=== PATIENT | male | born 1985 | race Caucasian/White ===

== ENCOUNTER → 2020-09-24 12:06 | Outpatient (CLI) | payer MEDICAID, SELFPAY ==
[2020-09-24 10:47] VITALS: BMI 27.3
[2020-09-24 15:21] LABS: Absolute Lymphocyte Count 2.42 X10^3/uL (0.83-4.51); Absolute Neutrophil Count 6.2 X10^3/uL (2.0-7.7); Basophil# 0.07 X10^3/uL; Basophil% 0.7 % (0-1); Eosinophil# 0.22 X10^3/uL; Eosinophils% 2.3 % (0-5); Hematocrit 51.5 % (40-54); Hemoglobin 16.5 g/dL (13.0-16.5); Lymphocyte # 2.42 X10^3/ul (4.0); Lymphocyte % 25.1 % (19-41); Mean Corpuscular Hgb 29.3 pg (27.0-32.0); Mean Corpuscular Volume 91.5 fL (80-94); Mean Platelet Vol. 9.7 fl (6.2-12.0); Monocyte# 0.74 X10^3/uL; Monocyte% 7.7 % (0-10); NRBC Flagged by Analyzer 0 % (0-5); Neutrophil # 6.16 X10^3/uL (2.7-7.7); Neutrophil % 63.9 % (47-70); Platelet Count 357 K/mm3 (150-450); RBC Distribution Width CV 11.9 % (11.6-14.6); RBC Distribution Width SD 40.9 fl (35.1-43.9); Red Blood Count 5.63 M/mm3 (4.6-6.2); White Blood Count 9.6 K/mm3 (4.4-11.0)
[2020-09-24 15:45] LABS: Vitamin D,25 Hydroxy 18.5 ng/mL
[2020-09-24 15:55] LABS: ALB/GLOB Ratio 1.3 RATIO (0.9-2.4); AST(SGOT) 17 U/L (15-37); Alanine Aminotransfer ALT/SGPT 28 U/L (16-61); Albumin, Serum 4.5 g/dL (3.2-5.0); Alkaline Phosphatase 80 U/L (45-117); Anion Gap 5 (5-15); BUN 18 mg/dL (7-18); BUN/Creat Ratio 16.1 RATIO (10-20); Calcium,Total 9.1 mg/dL (8.5-10.1); Chloride 106 mmol/L (98-107); Cholesterol 152 mg/dL (200); Creatinine, Serum 1.12 mg/dL (0.70-1.30); EST Glomerular Filtration Rate 79 mL/min (>60); Est Glom Filt Rate - Afr Amer 96 mL/min (>60); Free T3 2.7 pg/mL (2.18-3.98); Globulin 3.4 g/dL (2.2-4.2); Glucose 82 mg/dL (74-106); High Density Lipoprotein 47 mg/dL; Potassium 4.5 mmol/L (3.5-5.1); Protein, Total 7.9 g/dL (6.4-8.2); Sodium Level 143 mmol/L (136-145); T4 Free Direct 0.58 ng/dL (0.76-1.46); Triglycerides 174 mg/dL; Very Low Density Lipoprotein 35 mg/dL (5-40)
[2020-09-24 16:10] LABS: Hemoglobin A1c 5.2 % (3.8-5.6)
[2020-09-26 09:50] LABS: Hepatitis B Core Ab Total Negative (Negative)
== END ==
PROVIDERS: PCP Internal Medicine; Referring Provider Internal Medicine; Visit Provider Internal Medicine
DX: E55.9 Vitamin D deficiency, unspecified (principal); E78.5 Hyperlipidemia, unspecified; E03.9 Hypothyroidism, unspecified; F41.9 Anxiety disorder, unspecified; R45.86 Emotional lability
CPT/HCPCS: 36415; 80053; 80061; 82306; 83036; 84439; 84443; 84481; 85025; 86704

== ENCOUNTER 2020-10-02 10:23 | Emergency (ER) | payer OTHER, MEDICAID, SELFPAY ==
[2020-09-24 10:47] VITALS: BMI 27.3
[2020-10-02 10:25] VITALS: BP 132/93; PULSE 80; RESP 17; TEMP 36.1; O2SAT 97; BMI 27.3
--- NOTE | 2020-10-02 10:57 | ED.DCSUM_ITS ---
- ER Visit Summary Date of Service: 10/02/20 Chief Complaint: Right leg pain History of Present Illness: The patient is a [address] Crawley. He reports that he was at work and got his right leg is stuck in between a loading dock in a truck. He has an aching pain is 7 of 10 at worst and 5-10 currently. It is worsened with plantar and dorsiflexion of his foot as well as walking. It is relieved by rest and ice. He denies any paresthesias distally. He denies any other injuries. No blow to the head or loss of consciousness. Is not on anticoagulants. No neck, back, shoulder, wrist, or hip pain. On review of systems patient reports that he had a sore throat and cough for the past 3 days. His cough is nonproductive. He denies any fever, chills, shortness of breath. He denies Covid exposure. He does wear a mask. Physical Examination: Vitals: Stable. Afebrile. General: Well-nourished and well-developed. Head: Normocephalic atraumatic. Neck: Supple, no lymphadenopathy. No JVD. Nontender. Cardiovascular: Regular rate and rhythm. No murmurs. Respiratory: No respiratory distress. Clear to auscultation bilaterally. Abdominal: Soft, nontender, nondistended, normal bowel sounds. No guarding, rebound, or peritoneal signs. Back: Nontender. Extremities: Moderate tenderness palpation anteriorly over the distal tibia and fibula. There is no pain over the medial or lateral malleoli. No pain over the base the fifth metatarsal or proximal fibula. He is neurovascular intact distally. 2+ dorsalis pedis pulse, no edema. Skin: Normal color, no rash. Neurologic: Alert and oriented ?3. Cranial nerves II through XII are intact. Normal strength and sensation. Psych: Normal affect. Test Results: COVID-19 is negative. Clinical Impression(s) from Imaging Studies Tibia/Fibula X-Ray 10/02/20 11:25 IMPRESSION: Normal x-ray examination of the right tibia and fibula. Electronically Signed: Pablo Ely MD at 11:54 EDT Tel , Service support , Emergency Department Course and Treatment: Patient was given ibuprofen. He is resting comfortably. Treatment Plan: Patient is unable to ambulate without crutches. He will be discharged with crutches. Instructed to ice the area. Use Tylenol and/or ibuprofen for pain. Follow-up Workmen's Comp. within 1 week for another exam. Return to the emergency department for any worsening symptoms. Disposition: To home in improved and stable condition. Impression: 1. Right leg contusion. 2. URI. This note was generated with [email or web address] dictation software. It may contain incorrect words, spelling, and punctuation that were not noted in review of the chart prior to signing ED Disposition - Plan for ED Patient: Instructions: ED Contusion, Lower Extremity [facility]: [facility] [GROUP OF PHYSICIANS] - 1 Week
[2020-10-02] MEDS: Ibuprofen 400 MG Tablet 800 MG PO (11:10)
--- NOTE | 2020-10-02 11:25 | RAD_ITS ---
STUDY: X-RAY - RIGHT TIBIA AND FIBULA REASON FOR EXAM: Right lower leg pain after lower leg injury. TECHNIQUE: 2 view(s) of the tibia and fibula were obtained. COMPARISON: None. FINDINGS: Normal visualized tibia. Normal visualized fibula. The soft tissue structures are unremarkable. RAD/Tibia & Fibula 2 Views IMPRESSION: Normal x-ray examination of the right tibia and fibula. Electronically Signed: Pablo Ely MD at 11:54 EDT Tel , Service support ,
[2020-10-02 12:32] VITALS: BP 132/85; RESP 16
== END 2020-10-02 12:43 | disposition home or self-care (01) ==
PROVIDERS: Emergency Provider Emergency Medicine; PCP Internal Medicine
DX: S80.11XA Contusion of right lower leg, initial encounter (principal); J06.9 Acute upper respiratory infection, unspecified; F17.200 Nicotine dependence, unspecified, uncomplicated
CPT/HCPCS: 73590; 87426; 99284

== ENCOUNTER → 2021-02-13 13:56 | Outpatient (CLI) | payer MEDICAID, SELFPAY ==
[2021-02-13 13:08] VITALS: BMI 27.3
[2021-02-13 15:49] LABS: Free T3 2.5 pg/mL (2.18-3.98); Thyroid Stim Hormone (TSH) 4.41 uIU/mL (0.358-3.74)
[2021-02-13 15:58] LABS: HIV - WCH Non-Reactive (Nonreactive)
[2021-02-16 07:06] LABS: Chlamydia By Nucleic Acid AMP Negative (Negative)
[2021-02-17 12:10] LABS: Gonococcus By Nucleic Acid AMP Negative (Negative)
== END ==
PROVIDERS: PCP Internal Medicine; Referring Provider Internal Medicine; Visit Provider Internal Medicine
DX: E03.9 Hypothyroidism, unspecified (principal); Z20.2 Contact with and (suspected) exposure to infections with a predominantly sexual mode of transmission
CPT/HCPCS: 36415; 84439; 84443; 84481; 86703; 87491; 87591

== ENCOUNTER → 2021-04-03 12:25 | Outpatient (CLI) | payer MEDICAID, SELFPAY ==
[2021-04-03 15:45] LABS: Free T3 3.3 pg/mL (2.18-3.98); T4 Free Direct 0.88 ng/dL (0.76-1.46); Thyroid Stim Hormone (TSH) 0.11 uIU/mL (0.358-3.74)
== END ==
PROVIDERS: PCP Internal Medicine; Referring Provider Internal Medicine; Visit Provider Internal Medicine
DX: E03.9 Hypothyroidism, unspecified (principal)
CPT/HCPCS: 36415; 84439; 84443; 84481

== ENCOUNTER → 2021-05-22 13:48 | Outpatient (CLI) | payer MEDICAID, SELFPAY ==
[2021-05-22 16:07] LABS: Free T3 2.3 pg/mL (2.18-3.98); T4 Free Direct 0.59 ng/dL (0.76-1.46); Thyroid Stim Hormone (TSH) 3.85 uIU/mL (0.358-3.74)
== END ==
PROVIDERS: PCP Internal Medicine; Visit Provider Internal Medicine
DX: E03.9 Hypothyroidism, unspecified (principal)
CPT/HCPCS: 36415; 84439; 84443; 84481

== ENCOUNTER 2021-08-19 11:47 | Outpatient (CLI) | payer MEDICAID, SELFPAY ==
[2021-08-19 15:43] LABS: Free T3 2.6 pg/mL (2.18-3.98)
== END 2021-08-19 23:59 | disposition short-term general hospital (02) ==
LOC: BIMLAB 11:48
PROVIDERS: PCP Internal Medicine; Referring Provider Internal Medicine; Visit Provider Internal Medicine
DX: E03.9 Hypothyroidism, unspecified (principal)
CPT/HCPCS: 36415; 84439; 84443; 84481

== ENCOUNTER → 2023-02-03 | Outpatient (CLI) | payer MEDICAID, SELFPAY ==
[2023-02-03 15:40] LABS: Absolute Lymphocyte Count 1.81 X10^3/uL (0.83-4.51); Absolute Neutrophil Count 3.6 X10^3/uL (2.0-7.7); Basophil# 0.08 X10^3/uL; Basophil% 1.3 % (0-1); Eosinophil# 0.14 X10^3/uL; Eosinophils% 2.2 % (0-5); Hematocrit 46.5 % (40-54); Hemoglobin 15.1 g/dL (13.0-16.5); Lymphocyte # 1.81 X10^3/ul (0.83-4.51); Lymphocyte % 28.3 % (19-41); Mean Corp Hgb Conc 32.5 g/dL (32-36); Mean Corpuscular Hgb 28.7 pg (27.0-32.0); Mean Corpuscular Volume 88.2 fL (80-94); Monocyte# 0.71 X10^3/uL; Monocyte% 11.1 % (0-10); NRBC Flagged by Analyzer 0 % (0-5); Neutrophil # 3.64 X10^3/uL (2.7-7.7); Neutrophil % 56.9 % (47-70); Platelet Count 316 K/mm3 (150-450); RBC Distribution Width CV 12.4 % (11.6-14.6); RBC Distribution Width SD 39.9 fl (35.1-43.9); Red Blood Count 5.27 M/mm3 (4.6-6.2); White Blood Count 6.4 K/mm3 (4.4-11.0)
[2023-02-03 16:45] LABS: ALB/GLOB Ratio 1.4 RATIO (0.9-2.4); AST(SGOT) 25 U/L (15-37); Alanine Aminotransfer ALT/SGPT 38 U/L (16-61); Albumin, Serum 4.3 g/dL (3.2-5.0); Alkaline Phosphatase 83 U/L (45-117); Anion Gap 7 (5-15); BUN 14 mg/dL (7-18); BUN/Creat Ratio 13.2 RATIO (10-20); Calcium,Total 8.7 mg/dL (8.5-10.1); Chloride 107 mmol/L (98-107); Cholesterol 196 mg/dL (200); Creatinine, Serum 1.06 mg/dL (0.70-1.30); EST Glomerular Filtration Rate 83 mL/min (>60); Est Glom Filt Rate - Afr Amer 101 mL/min (>60); Free T3 2.5 pg/mL (2.18-3.98); Globulin 3.1 g/dL (2.2-4.2); Glucose 92 mg/dL (74-106); High Density Lipoprotein 35 mg/dL; Potassium 4.3 mmol/L (3.5-5.1); Protein, Total 7.4 g/dL (6.4-8.2); Sodium Level 139 mmol/L (136-145); T4 Free Direct 0.73 ng/dL (0.76-1.46); Triglycerides 479 mg/dL
[2023-02-03 17:50] LABS: Vitamin D,25 Hydroxy 30.2 ng/mL
== END | disposition home or self-care (01) ==
LOC: LAB 15:07
PROVIDERS: PCP Internal Medicine; Referring Provider Internal Medicine; Visit Provider Internal Medicine
DX: E03.9 Hypothyroidism, unspecified (principal); E78.5 Hyperlipidemia, unspecified; F41.9 Anxiety disorder, unspecified; F32.9 Major depressive disorder, single episode, unspecified; E55.9 Vitamin D deficiency, unspecified
CPT/HCPCS: 36415; 80053; 80061; 82306; 84439; 84443; 84481; 85025

== ENCOUNTER 2023-04-20 09:38 | Outpatient (RCR) | payer MEDICAID, SELFPAY ==
--- NOTE | 2023-04-20 09:05 | BH.SGPN.GN ---
Behaviors/Verbalizations/Mental Status: [] Eye contact is good. Motor activity is appropriate. Appearance is casual. Speech is Appropriate. Mood is anxious. Affect is congruent. Thoughts are linear and logical. No evidence of psychosis. Reviewed daily check in sheet and no reports of suicidal ideations or intent. Client Response/Progress/Benefit: [] Pt participated when prompted. Daily symptom tracker notes 3/5 for anxiety and 2/5 for depression. Shared with the group that today is his first day in IOP. Briefly introduced himself and reports that his goal for IOP is to decrease the intensity and impact of depression and anxiety on his life. Very brief introduction. Group welcomed him and provided feedback on getting through his first day and week in IOP which was beneficial. Limtied progress as this was pt's first day in IOP. Will continue in IOP to prevent decompensation, stablize anxiety, and increase healthy coping skills. Narrative Note: []
--- NOTE | 2023-04-20 10:15 | BH.SGPN.GN ---
Behaviors/Verbalizations/Mental Status: [] Eye contact is fair. Motor activity is appropriate. Appearance is casual. Speech is Appropriate. Mood is anxious. Affect is flat. Thoughts are linear and logical. No evidence of psychosis or hallucinations. Client Response/Progress/Benefit: [] Pt was a mostly passive participant in group discussion and activity. Attentive during psychoeducation. Along with peers was able to identify barriers to taking action on her mental health which included: fear of failure, the unknown, change, one's environment, past negative experiences, being passive, and fear of vulnerability. Identified several symptoms and stressors that client feels are impacting progress. Benefited from increased self-awareness of obstacles. Will continue in IOP to challenge distortions, increase healthy coping, and prevent decompensation.
--- NOTE | 2023-04-20 10:48 | BH.MTP ---
Master Treatment Plan Patient Information Program Physician:: Dr. Nakia Gomes Primary Therapist:: KENTRELL Avila Psychiatric Diagnoses Psychiatric Diagnoses:: 1. Major depressive disorder, recurrent, severe without psychosis 2. Social anxiety disorder 3. Generalized anxiety disorder 4. Opioid and methamphetamine use disorders (sober for anywhere from 1 to 3 months) Diagnosis Code(s):: F33.2 Estimated LOS Estimated LOS (in weeks):: 6 Problem/Goal #1 Problem/Goal #1 Stated Goal:: Pt will increase mood stability by reducing hopelessness, worthlessness, and negative thinking patterns caused by MDD. Description of Barriers: Pt reports avoidance, negative thinking patterns, and lack of energy. Pt has an extensive substance abuse and legal hx as well which may impede consistent progress as well. Functional Impact: The patient is a 37-year-old male with a history of depression, anxiety and opioid use disorder (sober from 2 to 3 months) who was referred by a counselor at [facility] for depression and anxiety. The patient states that he used to use the drugs to self-medicate for anxiety. Since being sober, in the recent months his depression has worsened and it is hard for him to leave the house or get out of bed due to lack of motivation. He is not afraid to leave the house although he does have social anxiety. His biggest stress is life, specifically not having a job or independent housing. For primary support he has his family however reports he is not close with them. 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 He denies any history of self-harm. He endorses sadness, hopelessness, rumination, social anxiety, worthlessness, lack of motivation, anhedonia, low energy, decreased concentration which has improved in recent weeks and guilt. He also had fleeting suicidal ideation several weeks ago at the time of his intake, but he now denies any suicidal ideation, plan for suicide, homicidal ideation, hallucinations, delusions or mandi ever. He denies OCD, eating disorder, trauma, PTSD or seizure. He did have an accidental overdose on opiates in the past but denied any PTSD symptoms from this. Goal Relevant Strengths/Supports: Pt is motivated, connected with outpatient psychiatry, and has completed substance abuse tx Objectives Objective #1: Stated Objective: Pt will learn and utilize 2-3 healthy coping strategies to better manage depressive symptoms and reduce suicidal ideations as shown by a decrease of DMS-5 symptoms for depression. Interventions: Through group and individual sessions, therapist will help pt identify triggers and warning signs of depression including emotional, physical, and behavioral changes. Therapist will teach pt various coping skills to manage symptoms and give pt tangible resources to use to regulate emotions. Therapist will use cognitive restructuring techniques and help pt gain awareness of negative thoughts that reinforce guilt and depression. Therapist will provide psychoeducation on maintenance cycles and help pt learn ways to break unhealthy maintenance cycles. Therapist will help pt incorporate behavioral activation and assist pt in setting SMART goals. Discharge Criteria: Pt will have met this goal when can report learning and using at least 2 coping skills to manage depressive symptoms and reduce isolation. Additionally, pt will have met this goal when pt's DSM-5 scores for depression decrease Target Date: 06/01/23 Review Date: 05/11/23 Objective #2: Stated Objective: Pt will identify at least 2-3 negative self-talk messages used to reinforce negative core beliefs, worthlessness, and isolation and replace thoughts with balanced, realistic messages. Interventions: Therapist will help pt identify distorted, negative beliefs about self and replace with more realistic, affirmative messages. Therapist will use CBT and DBT to help pt increase insight to the connection between thoughts, emotions, and behaviors. Therapist will encourage pt to practice thought challenging. Discharge Criteria: Pt will have achieved this goal when can verbalize at least 2 cognitive distortions and effectively replace those thoughts with affirmative messages. Target Date: 06/01/23 Review Date: 05/11/23 Problem/Goal #2 Problem/Goal #2 Stated Goal:: Will reduce intensity of anxiety and panic through increasing and distress tolerance skills Description of Barriers: Pt reports avoidance, negative thinking patterns, and lack of energy. Pt has an extensive substance abuse and legal hx as well which may impede consistent progress as well. Functional Impact: The patient is a 37-year-old male with a history of depression, anxiety and opioid use disorder (sober from 2 to 3 months) who was referred by a counselor at [facility] for depression and anxiety. The patient states that he used to use the drugs to self-medicate for anxiety. Since being sober, in the recent months his depression has worsened and it is hard for him to leave the house or get out of bed due to lack of motivation. He is not afraid to leave the house although he does have social anxiety. His biggest stress is life, specifically not having a job or independent housing. For primary support he has his family however reports he is not close with them. 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 He denies any history of self-harm. He endorses sadness, hopelessness, rumination, social anxiety, worthlessness, lack of motivation, anhedonia, low energy, decreased concentration which has improved in recent weeks and guilt. He also had fleeting suicidal ideation several weeks ago at the time of his intake, but he now denies any suicidal ideation, plan for suicide, homicidal ideation, hallucinations, delusions or mandi ever. He denies OCD, eating disorder, trauma, PTSD or seizure. He did have an accidental overdose on opiates in the past but denied any PTSD symptoms from this. Goal Relevant Strengths/Supports: Pt is motivated, connected with outpatient psychiatry, and has completed substance abuse tx Objectives Objective #1: Stated Objective: Pt will identify 2-3 anxiety triggers and 2 coping skills to use when feeling anxious to manage anxiety as shown by reducing DSM-5 scores for anxiety Interventions: Therapist will provide education on anxiety, avoidance behaviors, and maintenance cycles. Therapist will help pt explore personal symptoms and warning signs of anxiety. Therapist will teach pt coping skills to improve emotional regulation, mindfulness, and distress tolerance to help pt cope with anxiety in the moment. Discharge Criteria: Pt will have accomplished this goal when she can identify at least 2 triggers and report using 2 coping skills to manage anxiety. Additionally, pt will have accomplished this goal AEB reduction of DSM-5 scores for anxiety. Target Date: 06/01/23 Review Date: 05/11/23
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
--- NOTE | 2023-04-20 10:49 | BH.PSA ---
Development & Family of Origin Family History Family History Father Kidney disease Cancer Grandmother Kidney disease Mother Cancer
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
--- NOTE | 2023-04-20 11:20 | BH.SGPN.GN ---
Behaviors/Verbalizations/Mental Status: []Pt alert and oriented, casually dressed and groomed. Eye contact good. Motor activity appropriate. Speech within normal limits. Affect congruent, mood anxious. Thoughts linear, logical, no signs of hallucinations or delusions. Client Response/Progress/Benefit: [] Pt responded well to session, taking notes and participating in worksheet discussion. Pt connected with the zones of action/change and that making sustainable change comes from stepping out of one?s comfort zone into the learning zone. Pt set a goal to gain control over their negative self-talk. Pt will do this by focusing on having at least two social interactions a week. ?Pt will reach out to a friend and schedule ahead of time to keep pt accountable. Appeared to benefit from identifying a small goal to benefit mental health. Will continue IOP tx to prevent decompensation, improve daily functioning, and gain healthy coping skills. ?? Narrative Note: []
--- NOTE | 2023-04-21 09:35 | BH.NA ---
Physical Data Vital Signs Pulse Rate: 64 Blood Pressure: 148/98 Height/Weight Height: 1.73 m Weight:: 97.976 kg Weight in Pounds: 216.0 lbs Current Medication Compliance Medication Compliance Do you take your medication as prescribed?: Yes (Client had stopped Remeron/Seroquel for a period of time d/t wt gain) Nutritional History Appetite Nutritional Instructions: Describe your appetite:: Good Additional nutritional information:: Client states he had stopped his Remeron and Seroquel a few months ago for a period of time due to weight gain from medications. Client is back on both medications and states he has noticed some weight gain but is trying to eat healthy and exercise. Functional Assessment Sleep Pattern Describe any problems with sleeping: Client states he sleeps about 8 hours per night. Sensory/Communication Assess Communication Problems Do you have difficulty understanding what people are saying?: No Medical Problems/History Cardiac Conditions Cardiovascular: Hyperlipidemia (used to be on medication, is no longer) Metabolic Conditions Metabolic: Hypothyroidism Pain Assessment Do you have acute or chronic pain?: No Family History Family History Father Kidney disease Cancer Grandmother Kidney disease Mother Cancer Surgical History Surgical History Have you had any surgeries? If so, list type and date:: Yes (wisdom tooth extraction) Substance Abuse Substance Abuse Please describe substance abuse in the last 30 days:: Client reports he does not drink any alcohol, but he used to drink socially. Client states he currently vapes nicotine. Client states he last had a relapse of opioid and methamphetamine use about 3 months ago. Client states he first used opioids recreationally in his early 20's and used them and methamphetamine's consistently off and on for many years. Client states he has tried other drugs in the past. Client states he drinks 1-2 cups of coffee per day and rarely has energy drinks. Mental Status Summary Mental Status Significant Findings/Observations on Appearance and Mood:: Client is alert and oriented x 4. Client is casually groomed with good hygiene. Client is cooperative with assessment. Client makes good eye contact. Client's voiced has normal rate and volume. Client has appropriate affect and makes logical associations. Client has normal processing. Client denies delusions/hallucinations. Client denies SI. Suicide Assessment Suicidal Ideation Are you currently or have you been suicidal in the past?: Yes Suicidal Intentional Rating Scale (SIRS): Suicidal thoughts (past) Physician Notification Past Psychiatric History MH Treatment Hx Past Psychiatric Medications:: Client states he has only been on his current medications (Buspar, Lexapro, Remeron, Seroquel) Age of first mental health symptoms: Client states he feels he has had anxiety since childhood, but didn't take medications for mental health until about 2-3 years ago. Describe (age, circumstance, etc) any past hospitalizations: None. Current providers for mental health treatment (counselor, psychiatrist, child support case officer, etc.): counselor at [facility], psychiatry at [facility] Fall Risk Assessment Age Age: Less than 60 Mental Status Mental Status: Willing & able to ask for assistance when needed Physical Status Physical Status: No problems Impairments Impairments: None Elimination Elimination: Continent AND independent Gait or Balance Gait or Balance: Walks independently Hx of Falls History of falls in the past 6 months: No known history Medications/Substances Psychotropics:: Antidepressants and Mood stabilizers Medications/substances used within the past 24 hours or ordered to administer: 1-2 of the medications/substances listed above Total Score Total Points:: 1 RN Summary of Impressions Impressions Recommendations Impressions: Psychiatric Issues: 1. Major depressive disorder, recurrent, severe without psychosis 2. Social anxiety disorder 3. Generalized anxiety disorder 4. Opioid and methamphetamine use disorders (sober for anywhere from 1 to 3 months) 5. Hypothyroidism 6. Primary support and work issues Level of Care How do the client's current symptoms and functional deficits support need for this level of care?: Client was referred to IOP by his outpatient counselor after a relapse of opioid/meth use about 3 months ago with increased anxiety and depression after. Client states he thinks anxiety/depression has factored in to why he has used drugs in the past. Client has been to rehab for drug use multiple times. Client states he had had 1 year sober, but relapsed in June 2022 and lost his job after that and went to rehab in July 2022. Client states his anxiety and depression has been exacerbated since then. Client reports isolating himself, avoidance, ruminations, and racing thoughts. Client denies SI. IOP will promote gains and prevent further decompensation while providing social support and skills training.
[2023-04-21 10:02] VITALS: BP 148/98; PULSE 64
--- NOTE | 2023-04-21 10:10 | BH.SGPN.GN ---
Behaviors/Verbalizations/Mental Status: [Patient was alert and oriented, casually dressed and groomed. Eye contact good, motor activity normal, speech within normal limits. Affect congruent, mood content. Thoughts linear, logical, no signs of hallucinations or delusions. ] Client Response/Progress/Benefit: [Patient was open and participated in group discussions. Attentive during psychoeducation on stages of change. Participated during the activity. Interactive group discussion on why change is difficult in which group verbalized that change involves the unknown, is scary, leads to uncertainly, makes one feel vulnerable, leads to fear of failure, and triggers the pressure of success. Patient identified with fear as being a barrier for him. Patient benefited from increased awareness of stages of changes and how emotions impact change. Patient will continue with IOP treatment to promote mood stability, improve distress tolerance, and continue to improve functioning.] Narrative Note: []
--- NOTE | 2023-04-21 11:10 | BH.SGPN.GN ---
Behaviors/Verbalizations/Mental Status: []Pt alert and oriented, casually dressed and groomed. Eye contact good. Motor activity appropriate. Speech within normal limits. Affect congruent, mood anxious and depressed. Thoughts linear, logical, no signs of hallucinations or delusions. Client Response/Progress/Benefit: []Pt responded well to session, attentive. Did well to engage in and process activity. Pt worked with group to relate the strategies used to overcome barriers in the activity to managing change in own life. Pt identified wanting to work on reducing isolation by reaching out to friends and family daily. Pt Pt identified that setting a specific time each day to call or teach one of his supports would aid in his ability to follow-through with making this change. Pt will continue IOP tx to further improve anxiety management skills, promote continued communication with supports, and improve self-care. Narrative Note: []
--- NOTE | 2023-04-21 12:48 | PCM.BH.PSYEV ---
Psychiatric Evaluation Initial Evaluation Initial Evaluation: History of Present Illness: [] The patient is a 37-year-old single male with a history of depression, anxiety and opioid use disorder (sober from 2 to 3 months) who was referred by a counselor at [facility] for depression and anxiety. The patient states that he used to use the drugs to self medicate for anxiety. Since being sober and in the recent months his depression has worsened and it is hard for him to leave the house or get out of bed due to lack of motivation. He is not afraid to leave the house although he does have social anxiety if he has to go to a social function. His biggest stress is life. He states that he has no job and no house and is 37 years old. For primary support he has his family. 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 He denies any history of self-harm. He endorses sadness, hopelessness, worthlessness, lack of motivation, anhedonia, low energy, decreased concentration which has improved in recent weeks and guilt. He also had fleeting suicidal ideation several weeks ago at the time of his intake but he now denies any passive thoughts of and denies suicidal ideation, plan for suicide, homicidal ideation, hallucinations, delusions or mandi ever. He is a worrier by nature and ruminates negatively. He avoids social situations. He has had panic attacks in the past but none in the past month. He denies OCD, eating disorder, trauma, PTSD or seizure. He did have an accidental overdose on opiates in the past but denied any PTSD symptoms from this. Current Psychiatric Medications: [] He restarted his psych meds a few months ago after discontinuing the Seroquel due to weight gain. Seroquel Exar 25 or 50 mg p.o. nightly (for few years;); Remeron 15 mg p.o. nightly (x1 year); BuSpar 15 mg p.o. 3 times daily; Lexapro 20 mg daily (for about a year); propranolol 10 mg p.o. twice daily. Past Psychiatric History: [] No suicide attempts ever. No psych admits ever. He has providers at [facility] for the past few years and his psychiatrist at the [facility]. He first took meds in the last few years. He has had anxiety since childhood but used illicit drugs to cope instead of prescribed medicines. He thinks the only psych meds he has been on are the ones listed above. Substance Use History: [] Patient states I have done every drug you could think of. He has been in and out of rehab several times and admits to using opiates in the form of oxycodone and other p.o. opiates and also he has smoked heroin and fentanyl and he has used opiates daily for years. He did take buprenorphine in the past to help stay sober but is unsure why he stopped it. He also has a history of methamphetamine abuse and at one point he did methamphetamine and opiates together for for several months. His most recent episode of rehab was in 2022. He first used alcohol and marijuana in college. In his mid 20s he began using opiates and other drugs and he has not used any drugs since 3 months ago but he was inconsistent on his time since last use. The intake other records and my interview had anywhere from 1 to 3 months to 4 months listed as the last time he used drugs. He does vape nicotine but does not use any more marijuana or alcohol lately. Allergies: [] No known allergies Medications: [] Levothyroxine and psych meds as dictated above. Past Medical History: [] Hypothyroidism. Denies any surgeries except wisdom teeth. No other medical illnesses. Family Psychiatric History: [] Mom and dad are both in their 60s. He had a paternal uncle who committed suicide but he denies any mental illness in any other family members except himself. He states that there are no one else in the family has any substance issues that he knows of. Personal/Social History: [] He was born and raised in [place] [facility] [place] [facility] and moved to [place] with his father at age 16 and lived in [place] for 15 years. 3 years ago he went boot moved back to [place] to get away from drugs and attempt to stay sober. His parents were but when the patient was 16 years old and the kids stayed with his father. He has 1 brother 3 years younger and 1 sister 9 years younger and they are not very close because he says he has himself due to his drug use. His parents were loving and he denies any verbal, physical or sexual abuse ever. He did well in school and graduated high school and obtained a BS in [employer]. 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 He has lost jobs due to relapses on opiates and lost his most recent job after 1 year due to a relapse. He has had 3 serious girlfriends in the past but none in recent years. There is no abuse or abuse in his past relationships. Legal History: [] He has been arrested twice for possession of drugs and has spent time in residential for this. 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 Review of Systems: [] Review of systems is negative except as noted in the present illness. Vital Signs: [] Vital signs are reviewed in the records and in the nurses notes and updated and the patient is deemed medically able to participate in the IOP. Mental Status Examination: [] The patient is a 37-year-old male who appears normal for stated age and is dressed in a baseball cap and has glasses. He is ambulatory with a normal gait and has no psychomotor agitation or retardation. He is cooperative during the interview. Eye contact is fair and sometimes good and speech is normal rate and rhythm and fluent with no pressure. Mood is anxious and depressed. Affect is constricted. Thought process is goal-directed and organized. Thought content: The patient lacks motivation and has anxiety in social situations. He admits to fleeting suicidal ideation several weeks ago. He denies passive thoughts of , current suicidal ideation, plan for suicide, homicidal ideation, hallucinations, delusions or symptoms of mandi. Reality testing is intact. Intelligence is above average. Judgment is intact. Insight is limited but some present. Impulsivity is high. Diagnoses: [] 1. Major depressive disorder, recurrent, severe without psychosis 2. Social anxiety disorder 3. Generalized anxiety disorder 4. Opioid and methamphetamine use disorders (sober for anywhere from 1 to 3 months) 5. Hypothyroidism 6. Primary support and work issues Plan: [] The patient will start the IOP at [facility] in behavioral health as the structure, support, education and group therapy will hopefully prevent worsening of the patient's symptoms which could lead to hospitalization. He felt safe during the interview and if it anytime he does not feel safe he will let us know or go to the emergency room. The risk, options, possible complications and side effects of the medications were discussed with the patient and he understands and accepts these. He agrees to try stopping his Seroquel XR or reducing to 25 if the dose is 50 to help prevent the weight gain. If his anxiety worsens after this he may restart the Seroquel. The patient agrees to exercise by walking daily and to try to eat healthy in order to avoid weight gain. He agrees to stay sober from all drugs. He agrees to stay keep attending his AA meetings. He will continue to follow-up with his outpatient providers and I will see the patient in follow-up in 2 weeks.
--- NOTE | 2023-04-21 13:01 | BH.DR.ITP ---
Initial Treatment Plan Patient Information Visit Information: ADMISSION DATE: EXPECTED LOS: 4-6 weeks Problems/Symptoms Problem #1:: Depression Symptom:: Sadness, hopelessness, anhedonia, low energy, guilt, fleeting, passive suicidal ideation, decreased concentration Problem #2:: Anxiety Symptom:: Worry, rumination, avoidance
--- NOTE | 2023-04-22 09:00 | BH.SGPN.GN ---
Behaviors/Verbalizations/Mental Status: [Patient was alert and oriented, casually dressed and groomed. Eye contact was good, motor activity normal, speech within normal limits. Affect congruent, mood content. Thoughts linear, logical, no signs of hallucinations or delusions. Reviewed Patients symptom tracker, the patient reports moderate in anxiety/panic attacks. The patient reported he is low/moderate in depressed mood. Patient reports none for agitation/irritability/anger, self-harm urges, and thoughts/risk of suicide. ] Client Response/Progress/Benefit: [Patient was engaged and open to the discussion. Patient reported his mood to be ?tired?. The patients first win is that he was able to get up and come to group. The patient shared this was significant because he is not used to waking up and getting ready so early. The patient was not able to identify a second win so the group helped him brainstorm ways he can manage waking up and getting himself out of bed. The stressor is he is afraid he won?t wake up on time and be late to group. Patient was interactive and respectful with other group members about their mental wins and stressors. Patient benefited from the discussion by listening to feedback and giving input on her peer?s stressors and mental health wins. Patient will continue with IOP treatment to help develop healthy skills, promote mood stability, and improve distress tolerance. ] Narrative Note: []
--- NOTE | 2023-04-22 10:10 | BH.SGPN.GN ---
Behaviors/Verbalizations/Mental Status: [] Eye contact is good. Motor activity is appropriate. Appearance is casual. Speech is Appropriate. Mood is anxious dysthymic. Affect is constricted. Thoughts are linear and logical. No evidence of psychosis. Client Response/Progress/Benefit: [] Client was an attentive during interactive group discussions by writing notes and sharing when prompted. Attentive during psychoeducation on the six types of boundaries (physical, emotional, intellectual, sexual, time, and material) AEB note-taking. Along with peers contributed to interactive discussion on defining what a boundary is in mental health. Client along with peers identified challenges to setting boundaries which included; fear of other's response, guilt, fear of losing relationships, and not knowing how to. Client along with peers identified the benefits to setting boundaries. Client shared he struggles with setting boundaries because he doesn't want to deal with the confrontation. Client benefited from increased awareness and insight on the importance/benefit to setting healthy boundaries. Will continue in IOP to improve daily functioning, increase healthy coping, and prevent decompensation. Narrative Note: []
--- NOTE | 2023-04-22 11:10 | BH.SGPN.GN ---
Behaviors/Verbalizations/Mental Status: []Pt alert and oriented, casually dressed and groomed. Eye contact fair. Motor activity appropriate. Speech within normal limits. Affect congruent, mood anxious. Thoughts linear, logical, no signs of hallucinations or delusions. Client Response/Progress/Benefit: []Pt responded well to session, engaged and contributing. Pt attentive during psychoeducation on the different boundary styles. Able to connect impact current boundary styles impact on functioning. Pt was given a handout on strategies for healthy boundary setting. Appeared to benefit from increasing insight to boundary setting and the impacts on mental health. Pt states his boundaries are too rigid. Pt reported he wants to work on stepping outside his comfort zone by agreeing to do something with someone instead of staying at home alone. Will continue IOP tx to increase healthy coping, challenge distorted thoughts, and prevent decompensation.
--- NOTE | 2023-04-27 10:39 | BH.COMM ---
Communication Note Communication with Client Communication Note: Pt was scheduled for IOP tx on this date however did not show or call to cancel. Therapist was unable to leave a message when attempting to reach pt due to voice mailbox being full. Will follow-up
--- NOTE | 2023-04-28 09:21 | BH.COMM ---
Communication Note Communication with Client Communication Note: Communication Note: Pt was scheduled for IOP group on this date. However, pt did not show or call to cancel. Therapist attempted to contact pt but was unable to reach or leave a message. Will continue to attempt to contact.
--- NOTE | 2023-04-29 09:22 | BH.COMM ---
Communication Note Communication with Client Communication Note: Pt was scheduled for IOP group on this date. However, pt did not show or call to cancel. Therapist attempted to contact pt but was unable to reach or leave a message. Will continue to attempt to contact.
--- NOTE | 2023-04-30 14:28 | BH.DS_ITS ---
Discharge Summary Demographics Date of Admission:: 04/20/23 Discharge Date: 04/30/23 Presenting Problems at Admission:: The patient is a 37-year-old male with a history of depression, anxiety and opioid use disorder (sober from 2 to 3 months) who was referred by a counselor at [facility] for depression and anxiety. The patient states that he used to use the drugs to self-medicate for anxiety. Since being sober, in the recent months his depression has worsened and it is hard for him to leave the house or get out of bed due to lack of motivation. He is not afraid to leave the house although he does have social anxiety. His biggest stress is life, specifically not having a job or independent housing. For primary support he has his family however reports he is not close with them. 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 He denies any history of self-harm. He endorses sadness, hopelessness, rumination, social anxiety, worthlessness, lack of motivation, anhedonia, low energy, decreased concentration which has improved in recent weeks and guilt. He also had fleeting suicidal ideation several weeks ago at the time of his intake, but he now denies any suicidal ideation, plan for suicide, homicidal ideation, hallucinations, delusions or mandi ever. He denies OCD, eating disorder, trauma, PTSD or seizure. He did have an accidental overdose on opiates in the past but denied any PTSD symptoms from this. Discharge Diagnoses:: 1. Major depressive disorder, recurrent, severe without psychosis 2. Social anxiety disorder 3. Generalized anxiety disorder 4. Opioid and methamphetamine use disorders (sober for anywhere from 1 to 3 months) Reason for Discharge:: Pt had numerous no call/no shows and could not adhere to the attendance policy of attending a minimum of two days a week which is [facility] level of care. Treatment Progress During Treatment & Response: Pt has responded somewhat well to treatment and when in attendance he was an active participant and engaged. However, pt was inconsistent with attendance which resulted in discharge from [facility]. Pt's last attended IOP session was 04/22/23 and pt only attended a total of 3 sessions/one week. Pt unable to work on tx goals due to poor attendance and pt only meeting with individual therapist once as a result. Issues Still to be Addressed:: Low self-esteem, negative self-talk, communication within interpersonal relationships, poor boundaries, and poor self-care, maintaining sobriety, developing healthy coping mechanisms for managing his anxiety. Discharge Recommendations/Instructions:: Pt recommended to follow-up with outpatient counseling at [facility] and medication management. Unable to provide resources due to pt not showing up for tx and unable to reach on telephone. Discharge Handout
== END 2023-05-03 08:23 | disposition home or self-care (01) ==
LOC: BHIOP 09:38
PROVIDERS: PCP Internal Medicine; Referring Provider Psychiatry & Neurology Psychiatry; Visit Provider Psychiatry & Neurology Psychiatry
DX: F33.2 Major depressive disorder, recurrent severe without psychotic features (principal); F41.8 Other specified anxiety disorders; F41.1 Generalized anxiety disorder; F11.90 Opioid use, unspecified, uncomplicated
CPT/HCPCS: 90792; H2012; H2020; S9480; T1002; 90832

== ENCOUNTER → 2023-04-22 | Outpatient (CLI) | payer MEDICAID, SELFPAY ==
[2023-04-22 14:11] LABS: Free T3 2.6 pg/mL (2.18-3.98); T4 Free Direct 0.73 ng/dL (0.76-1.46); Thyroid Stim Hormone (TSH) 4.19 uIU/mL (0.358-3.74)
== END | disposition home or self-care (01) ==
LOC: LAB 12:20
PROVIDERS: PCP Internal Medicine; Referring Provider Internal Medicine; Visit Provider Internal Medicine
DX: E03.9 Hypothyroidism, unspecified (principal)
CPT/HCPCS: 36415; 84439; 84443; 84481

== ENCOUNTER 2023-05-11 08:00 | Outpatient (RCR) | payer MEDICAID, SELFPAY ==
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
--- NOTE | 2023-05-11 15:48 | BH.PSA_ITS ---
Source of Information Presenting Problems/Circumstances Problems, Referral Source, Mental Status, Client: The patient is a 37-year-old male with a history of depression, anxiety and opioid use disorder (sober from 2 to 3 months) who was referred by a counselor at [facility] for depression and anxiety. Psychiatric Presentation Psych Issues & Need for Admission Psychiatric Issues:: Anxiety, Depression, polysubstance abuse Past Psychiatric History MH Treatment Hx Treatment History: No suicide attempts ever. No psych admits ever. He has providers at [facility] for the past few years and his psychiatrist at the [facility]. He first took meds in the last few years. He has had anxiety since childhood but used illicit drugs to cope instead of prescribed medicines. First hospitalization:: denies Medication Trials:: Yes (Seroquel) ECT Therapy:: No Age of first mental health symptoms: Reports experiencing anxiety throughout most of his life. Describe (age, circumstance, etc) any past hospitalizations: Denies Current providers for mental health treatment (counselor, psychiatrist, director of casework services, etc.): [facility] for therapy and [facility] for psychiatry services Development & Family of Origin Childhood Significant Childhood Events: Moved into [facility] at age 15 with his father and siblings following parents divorce Family Who currently lives in your home?: Pt lives with his aunt in her home in [place] Family History Family History Father Kidney disease Cancer Grandmother Kidney disease Mother Cancer Ethnicity Culture Do you identify yourself with any particular cultural, ethnic background, or community?: No Sexuality Sexual Orientation: Heterosexual Spirituality Synagogue Do you currently identify with any organized spiritism?: None Beliefs Is there a particular form of support from this community you can use for your recovery?: No Mental Status Memory Recent Memory: Fair Remote Memory: Fair Concentration Concentration: Fair Eye Contact Eye Contact: Good Speech Speech: Congruent Thought Process Thought Process: Logical Insight: Fair Judgment: Fair Behavior: Anxious Orientation Orientation: Time, Person, Place and Situation Appearance Appearance: Appropriate Mood Mood: Anxious and Depressed Affect Affect: Constricted Suicide Assessment Suicidal Ideation Have you ever felt like hurting yourself?: Yes Please explain:: He also had fleeting suicidal ideation several weeks ago at the time of his intake but he now denies any passive thoughts of and denies suicidal ideation, plan for suicide Were you using ETOH/drugs at the time?: No Suicidal Intentional Rating Scale (SIRS): Suicidal thoughts (past) Physician Notification Violent Behavior/Abuse History Homicidal Ideation Do you have any homicidal thoughts? If so, explain:: No Is there a known potential victim? If yes, who:: No Abuse Have you ever been abused?: No Life Events Describe significant life events: Pt and his 2 siblings moved to [place] with their father following parents divorce when he was 15 and he lived there until a few years ago. Safety Do you ever feel threatened in your home? If yes, describe:: No Adult Social History Age 18 to Present Describe your current support system:: Pt's mental health providers as well as his aunt who pt lives with Substance Use Substance Substance Use Type: Alcohol, Amphetamines, Barbituates, Benzodiazepines, Cocaine, Heroin, Marijuana, Methamphetamine, Opiates, Prescribed, Tobacco and Caffeine Specific Drugs What specific drugs have you used?: I have done every drug you could think of. Extent of Use What quantity of substances have you used?: was using opioids and meth daily at one point in the past Duration of Use How long have you used substances?: off and on for 15 years Last Usage What is the date and situation you last used?: 1-3 months ago Withdrawal History Withdrawal History: Other (See comments) (denies) IV Substance Use Do you have a history of IV use?: denies Leisure/Social Activities Interests What do you enjoy or might be interested in learning about?: Enjoys computers, outdoors, and is hoping to learn skills to manage his anxiety in order to support his sobriety Education & Occupational Histo Education What is your level of education?: Bachelor Degree Do you have any learning disabilities?: No 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 If yes, describe:: Yes Court Orders Have you had any past court orders for psychiatric treatment?: No Do you have a present court order for psychiatric treatment?: No Problem Checklist Current Problem Areas Problem List: Depressed mood/sad, Anxiety, Substance use, Pertinent health issues and Additional psychosocial stressors (pending legal charges) Discharge Planning Needs Anticipated Follow-Up Mental Health Center (Name/Phone Number):: [facility] Private Therapist/Psychiatrist[facility] Family and Caregiver Contacts:: Pt lives with his Aunt Release of Information Signed:: Yes Diagnoses Diagnoses Diagnosis #1:: Major depressive disorder, recurrent, severe without psychosis Diagnosis #2:: Social anxiety disorder Diagnosis #3:: Generalized anxiety disorder Diagnosis #4:: Opioid and methamphetamine use disorders (sober for anywhere from 1 to 3 mo Interpretive Summary Interpretive Summary Interpretive Summary: The patient is a 37-year-old male with a history of depression, anxiety and opioid use disorder (sober from 2 to 3 months) who was referred by a counselor at [facility] for depression and anxiety. Pt was previously in the IOP program from 04/20/23 ? 04/30/23 but was discharged due to being incarcerated for missing court related to prior charges. The patient states that he used to use the drugs to self-medicate for anxiety. Since being sober, in the recent months his depression has worsened and it is hard for him to leave the house or get out of bed due to lack of motivation. He is not afraid to leave the house although he does have social anxiety. His biggest stress is life, specifically not having a job or independent housing. For primary support he has his family however reports he is not close with them. 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 He denies any history of self-harm. He endorses sadness, hopelessness, rumination, social anxiety, worthlessness, lack of motivation, anhedonia, low energy, decreased concentration which has improved in recent weeks and guilt. He also had fleeting suicidal ideation several weeks ago at the time of his intake, but he now denies any suicidal ideation, plan for suicide, homicidal ideation, hallucinations, delusions or mandi ever. He denies OCD, eating disorder, trauma, PTSD or seizure. He did have an accidental overdose on opiates in the past but denied any PTSD symptoms from this. Treatment Plan Recommendations Recommendations Guidelines Recommendations:: The patient will start the IOP at [facility] in behavioral health as the structure, support, education and group therapy will hopefully prevent worsening of the patient's symptoms which could lead to hospitalization.
--- NOTE | 2023-05-11 15:48 | BH.MTP ---
Master Treatment Plan Patient Information Program Physician:: Dr. Nakia Gomes Primary Therapist:: KENTRELL Avila Psychiatric Diagnoses Psychiatric Diagnoses:: 1. Major depressive disorder, recurrent, severe without psychosis 2. Social anxiety disorder 3. Generalized anxiety disorder 4. Opioid and methamphetamine use disorders (sober for anywhere from 1 to 3 months) Diagnosis Code(s):: F 33.2 Estimated LOS Estimated LOS (in weeks):: 6 Problem/Goal #1 Problem/Goal #1 Stated Goal:: Pt will increase mood stability by reducing hopelessness, worthlessness, and negative thinking patterns caused by MDD. Description of Barriers: Pt reports avoidance, negative thinking patterns, and lack of energy. Pt has an extensive substance abuse and legal hx as well which may impede consistent progress as well. Pt has several legal issues reinforcing his anxiety as well. Functional Impact: The patient is a 37-year-old male with a history of depression, anxiety and opioid use disorder (sober from 2 to 3 months) who was referred by a counselor at [facility] for depression and anxiety. Pt was previously in the [facility] program from 04/20/23 ? 04/30/23 but was discharged due to being incarcerated for missing court related to prior charges. The patient states that he used to use the drugs to self-medicate for anxiety. Since being sober, in the recent months his depression has worsened and it is hard for him to leave the house or get out of bed due to lack of motivation. He is not afraid to leave the house although he does have social anxiety. His biggest stress is life, specifically not having a job or independent housing. For primary support he has his family however reports he is not close with them. 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 He denies any history of self-harm. He endorses sadness, hopelessness, rumination, social anxiety, worthlessness, lack of motivation, anhedonia, low energy, decreased concentration which has improved in recent weeks and guilt. He also had fleeting suicidal ideation several weeks ago at the time of his intake, but he now denies any suicidal ideation, plan for suicide, homicidal ideation, hallucinations, delusions or mandi ever. He denies OCD, eating disorder, trauma, PTSD or seizure. He did have an accidental overdose on opiates in the past but denied any PTSD symptoms from this. Goal Relevant Strengths/Supports: Pt is motivated to improve his mental health and maintain sobriety. He is connected with [facility] for substance abuse treatment as well. Objectives Objective #1: Stated Objective: Pt will learn and utilize 2-3 healthy coping strategies to better manage depressive symptoms and reduce suicidal ideations as shown by a decrease of DMS-5 symptoms for depression. Interventions: Through group and individual sessions, therapist will help pt identify triggers and warning signs of depression including emotional, physical, and behavioral changes. Therapist will teach pt various coping skills to manage symptoms and give pt tangible resources to use to regulate emotions. Therapist will use cognitive restructuring techniques and help pt gain awareness of negative thoughts that reinforce guilt and depression. Therapist will provide psychoeducation on maintenance cycles and help pt learn ways to break unhealthy maintenance cycles. Therapist will help pt incorporate behavioral activation and assist pt in setting SMART goals. Discharge Criteria: Pt will have met this goal when can report learning and using at least 2 coping skills to manage depressive symptoms and reduce isolation. Additionally, pt will have met this goal when pt's DSM-5 scores for depression decrease Target Date: 06/25/23 Review Date: 06/02/23 Objective #2: Stated Objective: Pt will identify at least 2-3 negative self-talk messages used to reinforce negative core beliefs, worthlessness, and isolation and replace thoughts with balanced, realistic messages. Interventions: Therapist will help pt identify distorted, negative beliefs about self and replace with more realistic, affirmative messages. Therapist will use CBT and DBT to help pt increase insight to the connection between thoughts, emotions, and behaviors. Therapist will encourage pt to practice thought challenging. Discharge Criteria: Pt will have achieved this goal when can verbalize at least 2 cognitive distortions and effectively replace those thoughts with affirmative messages. Target Date: 06/25/23 Review Date: 06/02/23 Problem/Goal #2 Problem/Goal #2 Stated Goal:: Will reduce intensity of anxiety and panic through increasing and distress tolerance skills Description of Barriers: Pt reports avoidance, negative thinking patterns, and lack of energy. Pt has an extensive substance abuse and legal hx as well which may impede consistent progress as well. Pt has several legal issues reinforcing his anxiety as well. Functional Impact: The patient is a 37-year-old male with a history of depression, anxiety and opioid use disorder (sober from 2 to 3 months) who was referred by a counselor at [facility] for depression and anxiety. Pt was previously in the [facility] program from 04/20/23 ? 04/30/23 but was discharged due to being incarcerated for missing court related to prior charges. The patient states that he used to use the drugs to self-medicate for anxiety. Since being sober, in the recent months his depression has worsened and it is hard for him to leave the house or get out of bed due to lack of motivation. He is not afraid to leave the house although he does have social anxiety. His biggest stress is life, specifically not having a job or independent housing. For primary support he has his family however reports he is not close with them. 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 He denies any history of self-harm. He endorses sadness, hopelessness, rumination, social anxiety, worthlessness, lack of motivation, anhedonia, low energy, decreased concentration which has improved in recent weeks and guilt. He also had fleeting suicidal ideation several weeks ago at the time of his intake, but he now denies any suicidal ideation, plan for suicide, homicidal ideation, hallucinations, delusions or mandi ever. He denies OCD, eating disorder, trauma, PTSD or seizure. He did have an accidental overdose on opiates in the past but denied any PTSD symptoms from this. Goal Relevant Strengths/Supports: Pt is motivated to improve his mental health and maintain sobriety. He is connected with [facility] for substance abuse treatment as well. Objectives Objective #1: Stated Objective: Pt will identify 2-3 anxiety triggers and 2 coping skills to use when feeling anxious to manage anxiety as shown by reducing DSM-5 scores for anxiety Interventions: Therapist will provide education on anxiety, avoidance behaviors, and maintenance cycles. Therapist will help pt explore personal symptoms and warning signs of anxiety. Therapist will teach pt coping skills to improve emotional regulation, mindfulness, and distress tolerance to help pt cope with anxiety in the moment. Discharge Criteria: Pt will have accomplished this goal when she can identify at least 2 triggers and report using 2 coping skills to manage anxiety. Additionally, pt will have accomplished this goal AEB reduction of DSM-5 scores for anxiety. Target Date: 06/25/23 Review Date: 06/02/23 Objective #2: Stated Objective: Client will reduce avoidance behaviors that reinforce anxiety by setting 1-2 small exposure goals a week to increase socialization, increase mastery, and reduce anxiety over time. Interventions: Therapist will provide education on anxiety, avoidance behaviors, and maintenance cycles. Therapist will help client create a fear-ladder that will act as a guide in confronting anxiety-producing situations. The fear-ladder will go from least anxiety-producing to most anxiety-producing so client can build confidence. Therapist will help client set SMART goals and challenge barriers. Discharge Criteria: Pt will report completing 1-2 small exposure goals each week and implementing grounding skills to aid in successfully doing so. Pt will self-report reduced anxiety in completing these goals as well Target Date: 06/25/23 Review Date: 06/02/23
--- NOTE | 2023-05-12 09:00 | BH.SGPN.GN ---
Behaviors/Verbalizations/Mental Status: [] Eye contact is good. Motor activity is appropriate. Appearance is casual. Speech is Appropriate. Mood is anxious. Affect is congruent. Thoughts are linear and logical. No evidence of psychosis. Reviewed daily check in sheet and no reports of suicidal ideations or intent. Client Response/Progress/Benefit: [] Pt participated at times during the group discussion. Attentive. Daily symptom tracker notes 09/20 for anxiety. Pt shared with the group that he was re-admitted to [facility] today after spending the past week in retirement. Reports feeling embarrassed and ashamed of himself. The retirement time was due to an outstanding warrant from a year ago. Reports a rollercoaster of emotions in the past week. His anxiety is severe and he reports struggles with self-esteem and hopelessness. I knew that I needed to get back in [facility]. Emotion is optimistic and anxious. Limited progress as this was his first day back in [facility] after 2 weeks. Benefited from group support, encouragment, and feedback. Will continue in [facility] to prevent decompensation, stabilize mood, and improve functioning. Narrative Note: []
--- NOTE | 2023-05-12 09:35 | BH.NA ---
Physical Data Vital Signs Pulse Rate: 70 Blood Pressure: 150/96 Height/Weight Height: 1.73 m Weight:: 99.79 kg Weight in Pounds: 220.0 lbs Current Medication Compliance Medication Compliance Do you take your medication as prescribed?: Yes Nutritional History Appetite Nutritional Instructions: Describe your appetite:: Good Additional nutritional information:: Client has gained 4 lbs since he was first in IOP 04/20/23. Client states his food choices have not been healthy and he has not exercised. Functional Assessment Sleep Pattern Describe any problems with sleeping: Client states with his Remeron and his Seroquel nightly, he sleeps about 7-8 hours. Sensory/Communication Assess Communication Problems Do you have difficulty understanding what people are saying?: No Medical Problems/History Cardiac Conditions Cardiovascular: Hyperlipidemia (not on medication) Metabolic Conditions Metabolic: Hypothyroidism Pain Assessment Do you have acute or chronic pain?: No Family History Family History Father Kidney disease Cancer Grandmother Kidney disease Mother Cancer Surgical History Surgical History Have you had any surgeries? If so, list type and date:: Yes (wisdom teeth removal) Substance Abuse Substance Abuse Please describe substance abuse in the last 30 days:: Client states he has used alcohol in the past, but never on a regular basis. Client states he continues to vape nicotine daily. Client had used meth about 4 months ago, and has not relapsed on meth or opioids since he originally started IOP 04/20. Client does drink 1-2 cups of coffee per day. Mental Status Summary Mental Status Significant Findings/Observations on Appearance and Mood:: Client is alert and oriented x 4. Client is casually groomed. Client is cooperative with assessment. Client makes fair eye contact. Client's voice has normal rate and volume. Client has a somewhat restricted affect. Client makes logical associations and has normal processing. Client denies delusions/hallucinations. Client states he did have some SI while in half-way, but denies any SI since his release from half-way 04/29/23. Suicide Assessment Suicidal Ideation Are you currently or have you been suicidal in the past?: Yes (past) Suicidal Intentional Rating Scale (SIRS): Suicidal thoughts (past) Physician Notification Past Psychiatric History MH Treatment Hx Past Psychiatric Medications:: only the meds that he is currently on (Buspar, Lexapro, Remeron, Seroquel) Age of first mental health symptoms: Client states her first took medication for anxiety and depression at age 35. Describe (age, circumstance, etc) any past hospitalizations: None. Current providers for mental health treatment (counselor, psychiatrist, watch case polisher, etc.): Sigifredo at [facility] for counseling, Luís hSeridan at [facility] for psychiatry Fall Risk Assessment Age Age: Less than 60 Mental Status Mental Status: Willing & able to ask for assistance when needed Physical Status Physical Status: No problems Impairments Impairments: None Elimination Elimination: Continent AND independent Gait or Balance Gait or Balance: Walks independently Hx of Falls History of falls in the past 6 months: No known history Medications/Substances Psychotropics:: Antidepressants Medications/substances used within the past 24 hours or ordered to administer: 1-2 of the medications/substances listed above Total Score Total Points:: 1 RN Summary of Impressions Impressions Recommendations Impressions: Psychiatric Issues: 1. Major depressive disorder, recurrent, severe without psychosis 2. Social anxiety disorder 3. Generalized anxiety disorder 4. Opioid and methamphetamine use disorders (sober since February 2023) Impression: General Medical Conditions: Discussed with client that his BP on 04/22/23 was 148/98 and today his BP is 150/96. Client states he does not know what his BP usually is at his PCP office but states they never say anything to me about it. Encouraged client to ask his PCP about his BP's there. Client states he has anxiety with all social interactions. Level of Care How do the client's current symptoms and functional deficits support need for this level of care?: Client was in IOP from 04/20 to 05/02/23 and is restarting at this time. Client was arrested briefly for a charge from about a year ago. Client states while he was in half-way, he did have SI, but denies any SI at this time since he was released. Client states he has not had a panic attack in a couple of weeks. Client does report his motivation is low to leave the house and states he has anxiety in social interactions. IOP will promote gains and prevent further decompensation while providing social support and skills training.
[2023-05-12 10:43] VITALS: BP 150/96; PULSE 70
--- NOTE | 2023-05-12 11:10 | BH.SGPN.GN ---
Behaviors/Verbalizations/Mental Status: []Pt alert and oriented, casually dressed, appropriately groomed. Eye contact good. Motor activity appropriate. Speech within normal limits, mostly quiet. Affect congruent, mood anxious and depressed. Thoughts linear, logical, no signs of hallucinations or delusions. Client Response/Progress/Benefit: [] Pt was engaged during discussion and willing to complete the worksheet challenging them to develop a personal SMART goal. Pt chose the goal of calling two of his supports each week. Pt stated this will benefit pt by giving him emotional support, connection, and feedback. Pt identified barriers which included forgetting and people not answering. Identified solutions such as setting reminders in his phone, texting, and having a backup plan for other people to call. Pt receptive to identifying solutions for these barriers and willing to begin working on this goal. Benefited from this group by developing a short-term SMART goal related to mental health. Will continue IOP tx to prevent decompensation, improve daily functioning, and combat distortions. Narrative Note: []
--- NOTE | 2023-05-12 12:34 | PCM.BH.PSYEV ---
Psychiatric Evaluation Initial Evaluation Initial Evaluation: The note will serve as an interim note as the patient was in [facility] from April 20 to May 02, 2023 and initial evaluation was done several weeks ago. Refer to initial evaluation for further information. The patient is a 37-year-old single, male with a history of depression, anxiety, opioid and amphetamine use disorder and hypothyroidism who was participating in the IOP at [facility] but then was taken to correction from April 25 to April 29, 2023 for a drug possession charge that was from 1 year ago. The patient said he did not know he had a warrant for his arrest but then during the interview later states that he was trying to put it out of his mind because he tries to avoid things that he does not want to think about. He went to court last week and his next court date is on July 01, 2023. The patient stopped his Seroquel when he went to correction but then went back on it due to increased anxiety. He feels he may have gained few pounds while in correction because he was unable to eat healthy or walk daily. Since his release from correction in April 29, 2023 the patient states states that he is getting somewhat better although he still endorses sadness, occasional hopelessness, worthlessness, anhedonia, low energy and decreased concentration. It has been somewhat hard for him to leave the house or get out of bed due to lack of motivation since getting out of correction. He has remained sober since his last visit but continues to vape nicotine daily. He denies any history of self-harm. He denies passive thoughts of since being out of correction. He denies suicidal ideation, plan for suicide, homicidal ideation, hallucinations or delusions. Psych Meds: Seroquel Exar 25 mg p.o. nightly (restarted on April 25, 2023); Remeron 15 mg p.o. nightly; BuSpar 15 mg p.o. 3 times daily; Lexapro 20 mg p.o. daily; propanolol 10 mg p.o. twice daily Mental status exam: The patient is a 37-year-old male with glasses who appears normal for stated age and is casually dressed and groomed with good hygiene. He has no psychomotor agitation or retardation. He is alert and oriented to person place and time. Mood is depressed. Affect is constricted. Eye contact is decreased. Speech is normal rate and rhythm and fluent with no pressure. Thought process is goal-directed and organized. Thought content: There is evidence of recent path of passive thoughts of while in correction. There is no evidence of current passive thoughts of , suicidal ideation, homicidal ideation, hallucinations or delusions. Reality testing is intact. Intelligence is average. Judgment is intact. Insight is limited. Impulsivity is high. Diagnosis 1. Major depressive disorder, recurrent, severe without psychosis 2. Social anxiety disorder 3. Generalized anxiety disorder 4. Opioid and methamphetamine use disorders (sober since February 2023) 5. Hypothyroidism 6. Primary support, legal and work issues Plan: The patient will start the IOP program again at [facility] as the structure, support, education and group therapy will hopefully prevent worsening of the patient's symptoms which could lead to hospitalization. He felt safe during the interview and if it anytime he does not feel safe he will let us know or go to the emergency room. He will continue his current medications at the current doses. He agrees to try to exercise again and start eating healthy. He agrees to return to his AA meetings which she has not attended lately and he also plans to obtain a sponsor. He agrees to stay sober from all drug use. He will continue to follow-up with his outpatient providers and I will see the patient in follow-up in 2 weeks.
--- NOTE | 2023-05-12 12:41 | BH.DR.ITP ---
Initial Treatment Plan Patient Information Visit Information: ADMISSION DATE: EXPECTED LOS: 4-6 weeks Problems/Symptoms Problem #1:: Depression Symptom:: Sadness, hopelessness, anhedonia, decreased concentration, passive thoughts of , decreased concentration Problem #2:: Anxiety Symptom:: Worry, rumination
--- NOTE | 2023-05-13 09:00 | BH.SGPN.GN ---
Behaviors/Verbalizations/Mental Status: [Patient was alert and oriented, appropriately dressed and groomed. Eye contact was good, motor activity normal, speech within normal limits. Affect congruent, mood content. Thoughts linear, logical, no signs of hallucinations or delusions. Reviewed Patients symptom tracker and the patient reports depressed mood, anxiety/panic attacks, agitation/irritability/anger, self-harm urges, and thoughts/risk of suicide within normal limits.] Client Response/Progress/Benefit: [Patient was engaged and open to the discussion. Patient reported her mood being ?tired?.??The patient reported his first win was that he got his hair cut for the first time in 4 months. His second win was he also went shopping yesterday which is something that he never does. His stressor he said was that his haircut is making him feel weird. He said that he thinks he just needs to get used to it but is unsure if he likes it in general. Patient was interactive and respectful with other group members about their mental wins and stressors. Patient benefited from the discussion by listening to feedback and giving input on her peer?s stressors and mental health wins. Patient will continue with IOP treatment to help develop healthy skills, promote mood stability, and improve distress tolerance. ] Narrative Note: []
--- NOTE | 2023-05-13 10:17 | BH.SGPN.GN ---
Behaviors/Verbalizations/Mental Status: []Pt alert and oriented, neatly dressed and groomed. Eye contact good. Motor activity appropriate. Speech within normal limits. Affect constricted, mood anxious. Thoughts linear, logical, no signs of hallucinations or delusions. Client Response/Progress/Benefit: [] Pt was an active participant AEB providing input and was actively taking notes. Connected with the topic of pitfalls and listened to group discussion on internal and external barriers that prevent from choosing a healthier path to mental wellness. Group worked together to identify examples of personal internal pitfalls and pt identified theirs as fear of failure, lack of motivation, hopelessness, and self-doubt. Pt benefited from group as Pt learned to better identify and normalize potential barriers to improving mental health symptoms. Pt also gained awareness of the difference between external triggers and self-sabotaging behaviors. Pt will continue IOP tx to prevent decompensation, reduce avoidance and isolation, and gain healthy coping skills. ? Narrative Note: []
--- NOTE | 2023-05-13 11:15 | BH.SGPN.GN ---
Behaviors/Verbalizations/Mental Status: []Pt alert and oriented, casually dressed and groomed. Eye contact good. Motor activity appropriate. Speech within normal limits. Affect congruent. Mood anxious and depressed. Thoughts linear, logical, no signs of hallucinations or delusions. Client Response/Progress/Benefit: []Pt was an active participant AEB contribution to discussion, taking notes, and willingness to engage in group activity. Connected with the topic of pitfalls and listened to group discussion on internal and external barriers that prevent from choosing a healthier path to mental wellness. Group worked together to identify examples of internal pitfalls presented in the activity as well as strategies for managing or preventing these. Pt identified personal pitfalls to include: fear of failure, hopelessness, and low motivation. Pt identified wanting to work on pitfall of low motivation by practicing opposite action and having a support help hold him accountable. Benefited from group as pt learned to better identify and normalize potential barriers to improving mental health symptoms. Pt to continue IOP to challenge distorted thoughts, increase healthy coping, and prevent decompensation. Narrative Note: []
--- NOTE | 2023-05-14 10:10 | BH.SGPN.GN ---
Behaviors/Verbalizations/Mental Status: []Eye contact is good. Motor activity is appropriate. Appearance is casual. Speech is Appropriate. Mood is anxious and depressed. Affect is congruent. Thoughts are linear and logical. No evidence of psychosis. Client Response/Progress/Benefit: []Pt was an active participant in group discussion. Attentive during psychoeducation on SMART goals. Participated in experiential activity. Engaged during interactive discussion on the benefits of setting goals which group identified as; increase self-worth, increase confidence, can motivate us, can lead to personal growth, and can give one a sense of purpose. Participated during interactive discussion on possible obstacles to obtaining goals and pt self-identified barriers as self-doubt and avoidance?. Benefited from increased understanding of benefits of goals, obstacles to obtaining goals, and methods for setting appropriate goals (SMART goals). Will continue in IOP to prevent decompensation, improve mood stability, and further improve current functioning. Narrative Note: []
--- NOTE | 2023-05-18 09:00 | BH.SGPN.GN ---
Behaviors/Verbalizations/Mental Status: [] Eye contact is good. Motor activity is appropriate. Appearance is casual. Speech is Appropriate. Mood is euthymic. Affect is full. Thoughts are linear and logical. No evidence of psychosis. Reviewed daily check in sheet and no reports of suicidal ideations or intent. Client Response/Progress/Benefit: [] Pt participated at times during the group discussion. Attentive. Daily symptom tracker notes 5 for anxiety and /5 for depression. Emotion for today is tired. Mental health win is that he went on a walk yesterday and has plans to increase his exercise. Able to identify several mental health benefits to increased exercise. He shared struggles with motivation which prompted group discussion on behavioral activations which was beneficial. Also reports that he had an urge to get high last night. He has not had one of these in several weeks. According to patient he distracted himself for 15 minutes and the urge subsided. Slightly anxious about this, however noted that it was proud of himself as he managed the urge through healthy skills. Progress noted per pt report. Benefited from group support, encouragement, and feedback. Will continue in IOP to prevent decompensation, increase healthy coping, and to improve functioning. Narrative Note: []
--- NOTE | 2023-05-18 10:03 | BH.SGPN.GN ---
Behaviors/Verbalizations/Mental Status: [] Client alert and oriented, casually dressed and groomed. Eye contact good. Motor activity appropriate. Speech within normal limits. Affect congruent, mood euthymic. Thoughts linear, logical, no signs of hallucinations or delusions. Client Response/Progress/Benefit: [] Client responded well to session AEB sharing and listening attentively to others. Client provided examples of benefits of having social support, including that they can ?feelng supported?. Client also participated in group discussion regarding how it feels to not have social support.. Clinician provided psychoeducation on types of support including internal and external support, with client identifying online groups as form of supports. Client participated in experiential activity illustrating the importance of having multiple social supports and highlighting the roles of supports. Client provided supportive feedback and problem solving throughout group activity. Client participated in group processing of the activity, Client discussed supports helped him see things he could not. Client appeared to benefit from increased knowledge of the benefits of social support and greater self-awareness. Will continue IOP treatment to continue increasing application of healthy coping skills, decrease negative thinking patterns, and improve daily functioning. Narrative Note: []
--- NOTE | 2023-05-18 11:03 | BH.SGPN.GN ---
Behaviors/Verbalizations/Mental Status: [] Client alert and oriented, casually dressed and groomed. Eye contact good. Motor activity appropriate. Speech within normal limits. Affect congruent, mood euthymic. Thoughts linear, logical, no signs of hallucinations or delusions. Client Response/Progress/Benefit: [] Client was an active participant throughout AEB contributing to discussion, providing personal examples, and taking notes. Client processed emotions felt in the activity and how they coped in the moment. Client provided input during discussion on the types of support our supports can provide. Client able to identify current support system and barriers that get in the way of using supports by drawing out their own support net. Client reported after identifying what type of supports they receive; they gained awareness that they could benefit from more social supports. Client identified steps to achieve this by going to more aa/na meetings, attend local community events and volunteer. Client shared increasing social supports will help them be more active and not sit at home. Client seemed to benefit from identifying the type of support client needs to work on improving. Client recommended to continue IOP tx to prevent decompensation, reduce isolation, and increase positive self care. Narrative Note: []
== END 2023-05-18 23:59 ==
LOC: BHIOP 08:00
PROVIDERS: PCP Internal Medicine; Referring Provider Psychiatry & Neurology Psychiatry; Visit Provider Psychiatry & Neurology Psychiatry
DX: F33.2 Major depressive disorder, recurrent severe without psychotic features (principal); F41.8 Other specified anxiety disorders; F41.1 Generalized anxiety disorder; E03.9 Hypothyroidism, unspecified; F11.91 Opioid use, unspecified, in remission
CPT/HCPCS: 90792; H2020; S9480; 90834; 90853

== ENCOUNTER 2023-05-19 06:50 | Outpatient (RCR) | payer MEDICAID, SELFPAY ==
[2023-05-19 00:27] VITALS: BP 150/96; PULSE 70
--- NOTE | 2023-05-20 08:41 | BH.MDN_ITS ---
Multi-Disciplinary Note Note 45-min Individual: Time Started:: 09:12 Date: 05/20/23 Purpose of session/treatment goals addressed:: Purpose of session was to work on treatment plan goal #2. Additional goal was to creat pt fear ladder. Eye Contact:: Good Motor Activity:: Appropriate Appearance:: Neat and Casual Speech:: Appropriate Mood:: Anxious and Depressed Affect:: Congruent Thoughts:: Linear, Logical and No evidence of hallucinations/delusions noted Staff Interventions:: psychoeducation on: (exposure response prevention techniques), CBT techniques, rapport building, strengths perspective and goal setting (began fear ladder creation) Client Response:: Pt responded well to session, actively engaged throughout. Reports slight anxiety today as he arrived late for group and does not like to be the center of attention, so felt anxious about walking into process group after everyone had arrived. Reports overall his mental health has been more stable than it had been in months prior. Attributes this in part to no longer having his legal issues ?hanging over my head?, as well as actively taking steps to maintain sobriety and address his mental health sx. Pt has been attending regular AA group and is working with his outpatient counselor through [facility] on relapse prevention and challenging negative core beliefs. Went on to discuss feeling more comfortable in the group setting as he attends more consistently. Pt struggles with significant social anxiety and provided insight in prior session that he used substances as a safety behavior in social settings for much of his life. Pt shared anxiety about being the center of attention, being potentially judged or embarrassed for making a mistake, as well as unstructured or unplanned conversation. Insight that he has avoided reaching out to current supports or expanding his sober support network as a result. Identified isolation, loneliness, discomfort with the unknown, self-deprecation as a result of unresolved anxiety. Receptive of reviewing exposure therapy concepts and benefits of reducing safety behaviors. Pt and therapist worked to identify and rate potential exposure goals by level of anxiety. Pt reports motivation alongside apprehension to begin working on his identified fear ladder. Acknowledged discomfort but indicated ?nothing will change if I don?t make changes?. Plans to practice speaking up in group setting as initial exposure goal. Risks/Concerns:: No risks noted. Pt Denies SI, plan, or intent as of this date, 05/20/23 Progress Toward Goals/Plan:: Progress noted. Pt reports feeling more comfortable in the treatment environment and less anxious as a result, though continues to report significant anxiety in social settings. Additionally reports gaining insight into his mental health and safety behaviors. Pt reports struggling to implement that skills he has learned thus far but is making progress in understanding and wanting to reduce maladaptive coping behaviors. Continues to endorse negative core beliefs, anxiety, and avoidance/isolation. Recommended continues IOP tx to challenge negative thoughts, reduce safety behaviors, and improve confidence in social environments. Time Stopped:: 09:55
--- NOTE | 2023-05-20 10:15 | BH.SGPN.GN ---
Behaviors/Verbalizations/Mental Status: [] Eye contact is good. Motor activity is appropriate. Appearance is casual. Speech is Appropriate. Mood is depressed.irritable. Affect is congruent. Thoughts are linear and logical. No evidence of psychosis. Client Response/Progress/Benefit: [] Pt participated at times during the group discussions. Active participant in group activity on perspective. Attentive during interactive group discussions in which peers worked together to define 'perspective' (i.e. how we look at things; what we focus on) and discuss how it can impact one's mental health. Group was able to to identify what can impact our perspective and gave examples such as; past experiences, emotions, feelings, thoughts, support system, upbringing, and current environment. Benefited from increased awareness and insight on the role of perspective on mental health. Will continue in IOP to prevent decompensation, stabilize mood, and increase healthy coping. Narrative Note: []
--- NOTE | 2023-05-20 11:15 | BH.SGPN.GN ---
Behaviors/Verbalizations/Mental Status: []Pt alert and oriented, neatly dressed and groomed. Eye contact good. Motor activity appropriate. Speech within normal limits. Affect congruent, mood anxious and euthymic. Thoughts linear, logical, no signs of hallucinations or delusions. Client Response/Progress/Benefit: []Pt was attentive and contributed to small group discussion. Pt completed strengths exploration worksheet, identifying intelligence, common sense, and open mindedness as personal strengths. Pt able to acknowledge how these strengths are helping pt and can continue to help pt in mental health journey. Pt worked with group to identify strategies that can help increase utilization of personal strengths and how to challenge one?s perspective in general. Pt identified wanting to work on increasing positive self-talk to help challenge perspective. Benefited from identifying personal strengths and strategies for enhancing use of identified strengths to challenge perspective. Pt to continue IOP tx to promote mood stability, improve thought challenging and exposure goals, and increase self-compassion. ? Narrative Note: []
--- NOTE | 2023-05-21 09:00 | BH.SGPN.GN ---
Behaviors/Verbalizations/Mental Status: [Patient was alert and oriented, appropriately dressed and groomed. Eye contact was good, motor activity normal, speech within normal limits. Affect congruent, mood content. Thoughts linear, logical, no signs of hallucinations or delusions. Reviewed Patients symptom tracker and the patient reports depressed mood, anxiety/panic attacks, aggravation/irritation/anger, self-harm urges, and risk/thoughts of suicide within patients normal base level.] Client Response/Progress/Benefit: [Patient was engaged and open to the discussion. Patient reported his mood to be ?eh whatever?. When prompted on this he stated that he did not know how he felt that he was ?just here?. Patients first win is that he raked all the leaves at his house the day before. A second win was that he has been challenging himself and his thoughts more on his mindset. Patient admitted that he does not feel like he is ?doing anything spectacular? and is having trouble seeing a new perspective. A stressor is that he has some legal court hearings coming up and this is causing him anxiety because he is not sure what the jacket changer will decide. Patient was interactive and respectful with other group members about their mental wins and stressors. Patient benefited from the discussion by listening to feedback and giving input on his peer?s stressors and mental health wins. Patient will continue with IOP treatment to help develop healthy skills, promote mood stability, and improve distress tolerance. ] Narrative Note: []
--- NOTE | 2023-05-21 10:15 | BH.SGPN.GN ---
Behaviors/Verbalizations/Mental Status: [] Eye contact is good. Motor activity is appropriate. Appearance is casual. Speech is Appropriate. Mood is irritable. Affect is congruent. Thoughts are linear and logical. No evidence of psychosis. Client Response/Progress/Benefit: [] Pt did not participate during the group discussion. Participated in the group activity and was able to relate the activity to the topic of coping skills. Attentive during interactive discussion on coping skills. Group identified aspects that can influence copings skills which included; environment, learned behaviors, past experiences, accessibility, and the amount of effort placed in practicing skills. Attentive during the discussion on the difference between internal vs external coping skills as well as healthy vs unhealthy coping skills such as; denial, minimization, crying, lashing out, substance abuse, retail therapy, and sleeping to escape. Benefited from increased education on coping skills. Will continue in IOP to prevent decompensation, increase healthy coping, and improve functioning. Narrative Note: []
--- NOTE | 2023-05-21 11:15 | BH.SGPN.GN ---
Behaviors/Verbalizations/Mental Status: [] Client alert and oriented, casually dressed and groomed. Eye contact good. Motor activity appropriate. Speech within normal limits. Affect congruent, mood anxious and dysthymic. Thoughts linear, logical, no signs of hallucinations or delusions. Client Response/Progress/Benefit: [] Client responded well to session AEB taking notes and providing input and examples throughout. Group discussed the different categories of coping skills which included distraction, emotional release, grounding, self-love, and thought challenging. Client created a coping skill menu identifying various skills to try in each category. Client?s coping skill menu included: physical activity, venting, walking outdoors, doing things he enjoys, and looking at the evidence for/against thoughts. Appeared to benefit from increasing repertoire of healthy coping skills. Client will continue IOP tx to improve daily functioning, reduce negative thinking, and increase mood management skills. Narrative Note: []
--- NOTE | 2023-05-25 10:10 | BH.SGPN.GN ---
Behaviors/Verbalizations/Mental Status: []Pt alert and oriented, neatly dressed and groomed. Eye contact good. Motor activity appropriate. Speech within normal limits. Affect constricted, mood anxious. Thoughts linear, logical, no signs of hallucinations or delusions. Client Response/Progress/Benefit: [] Pt was an active participant in group discussions. Attentive during psychoeducation. Contributed during interactive discussions in which peers attempted to define crisis. Pt identified examples of potential crisis. Group also worked together to identify unhealthy responses to crisis which included; isolation, self-harm, substance abuse, avoidance, and distraction. Pt identified personal warning signs as avoiding and not answering calls, neglecting self-care, and irritability. Benefited from increased understanding of crisis and awareness of personal responses to crisis. Pt will continue IOP tx to prevent decompensation, improve daily functioning, and reduce avoidance. ? Narrative Note: []
--- NOTE | 2023-05-25 11:10 | BH.SGPN.GN ---
Behaviors/Verbalizations/Mental Status: [] Eye contact is fair. Motor activity is appropriate. Appearance is casual. Speech is Appropriate. Mood is euthymic. Affect is congruent. Thoughts are linear and logical. No evidence of psychosis. Client Response/Progress/Benefit: [] Pt was an active participant in group discussions. Attentive during psychoeducation. In small group pt along with peers developed an active plan for their crisis warning signs. Pt identified three crisis warning signs as well as an action plan for each. One crisis warning sign is avoiding/not answering calls with an action plan that involved: Opposite action, getting out of the house, engaging in something he enjoys, reaching out to support person, and going to AA. Other warning sign was irritability with an action plan that involved: Practice mindfulness, change environment, use healthy distractions, communicate feelings to support, and asked for help from support system. Benefited from increased awareness of crisis warning signs and by developing crisis intervention strategies. Will continue in IOP to continue challenging distorted thought patterns, promote use of healthy coping skills, and prevent decompensation.
--- NOTE | 2023-05-27 10:10 | BH.SGPN.GN ---
Behaviors/Verbalizations/Mental Status: []Pt alert and oriented, casually dressed and groomed. Eye contact good. Motor activity appropriate. Speech within normal limits. Affect constricted, mood anxious. Thoughts linear, logical, no signs of hallucinations or delusions. Client Response/Progress/Benefit: [] Pt engaged in session AEB listening attentively to others and providing insight to group discussion. Pt engaged in activity, able to connect how it can be uncomfortable and difficult to accept when things are out of one?s own control. Pt worked with group to identify what things in life can be hard to accept. Group identified things hard to accept as: of a loved one, body image, loss of relationship, mental health diagnosis, other?s behaviors, and past decisions. Pt shared he personally is struggling with asking for help and need for change. Pt seemed to benefit from increased awareness of importance of acceptance. Pt to continue IOP tx to increase healthy coping skills, challenge distortions, and prevent decompensation.
--- NOTE | 2023-05-27 11:10 | BH.SGPN.GN ---
Behaviors/Verbalizations/Mental Status: []Pt alert and oriented, neatly dressed and groomed. Eye contact good. Motor activity appropriate. Speech within normal limits. Affect congruent, mood anxious Thoughts linear, logical, no signs of hallucinations or delusions. Client Response/Progress/Benefit: [] Pt responded well to session AEB taking notes and contributing to discussion throughout. Pt engaged as group continued discussion on acceptance and the mental health benefits of practicing acceptance. Pt and peers identified what makes acceptance challenging and pt completed a self-reflection exercise on what is hard to accept in pt's life. Pt identified struggling to accept needing to change and asking for help.? Group identified strategies to increase acceptance and pt shared wanting to focus on mapping out the options and looking at the consequences. Pt appeared to benefit from gaining insight and learning strategies to increase acceptance. Pt will continue IOP tx to improve mood stability, reduce isolation, and increase emotional regulation skills. Narrative Note: []
--- NOTE | 2023-05-28 09:00 | BH.SGPN.GN ---
Behaviors/Verbalizations/Mental Status: [] Eye contact is good. Motor activity is appropriate. Appearance is casual. Speech is Appropriate. Mood is euthymic. Affect is full. Thoughts are linear and logical. No evidence of psychosis. Reviewed daily check in sheet and no reports of suicidal ideations or intent. Client Response/Progress/Benefit: [] Pt participated when prompted. Attentive. Daily symptom tracker notes 2/5 for depression, anxiety, and irritability. Pt shared that he is accomplishing tasks that he has been avoiding which has led to increased feeling of accomplishment. He is working on acceptance. There are things that are out of my control and I can't do anything about. Attempting to focus on what is in his control. Short and superficial check in this AM, however overall reports no significant distress today. Emotion for today is tired but accomplished. Progress noted per pt report. Benefited from group support, encouragement, and feedback. Will continue in IOP to prevent decompensation, increase healthy coping, and improve functioning. Narrative Note: []
--- NOTE | 2023-05-28 10:15 | BH.SGPN.GN ---
Behaviors/Verbalizations/Mental Status: [Patient was alert and oriented, casually dressed and groomed. Eye contact good, motor activity normal, speech within normal limits. Affect congruent, mood content. Thoughts linear, logical, no signs of hallucinations or delusions.] Client Response/Progress/Benefit: [Patient was open and participated in group discussions. Attentive during psychoeducation on behavior activation. Participated during the activity. Interactive group discussion on behavior activation in which group verbalized different up and down activities and how they can positively or negatively impact their actions. Patient stated one of his ?up? activities is staying in the loop of the sports teams he likes. Patient stated one of his ?down? 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 Patient benefited from increased awareness of stages of changes and how emotions impact change. Will continue in IOP to promote gains, further combat distorted thinking, and improve daily functioning.] Narrative Note: []
--- NOTE | 2023-05-28 11:10 | BH.SGPN.GN ---
Behaviors/Verbalizations/Mental Status: [] Eye contact is fair. Motor activity is appropriate. Appearance is casual. Speech is Appropriate. Mood is dysthymic. Affect is constricted. Thoughts are linear and logical. No evidence of psychosis. Client Response/Progress/Benefit: [] Pt responded well to session, attentive and engaged in group discussions and activity. Group discussed values and the benefits that knowing one's values can have on one's mental health. Pt explored own values and identified personal top values. Pt stated important value is his mental health and set goals to consistently apply skills and strategies learning in IOP. Pt appeared to benefit from exploring values and creating a weekly goal. Will continue in IOP to increase confidence, challenge distortions, increase healthy coping skills, and prevent decompensation.
--- NOTE | 2023-06-01 15:08 | BH.MDN ---
Multi-Disciplinary Note Note 30-min Individual: Time Started:: 11:53 Date: 05/28/23 Purpose of session/treatment goals addressed:: Purpose of session was to work on pt exposure therapy goals for social anxiety. Eye Contact:: Good Motor Activity:: Appropriate Appearance:: Neat and Casual Speech:: Appropriate Mood:: Anxious and Dysthymic Affect:: Congruent Thoughts:: Linear, Logical and No evidence of hallucinations/delusions noted Staff Interventions:: motivational interviewing, CBT techniques, strengths perspective and goal setting (aided pt in identifying small exposure goals) Client Response:: Pt receptive of session, actively engaged and openly discussed current sx and stressors throughout. Reports groups have continued to be helpful and he is learning ?a lot?. Discussed improved ability to use opposite action to encourage himself to leave the house and accomplish several errands he has been needing to address. Additionally, pt reports an overall improved mood and believes this is in part due to making more connections in the treatment environment. Shared that reflecting upon the connections he has made in group has increased his overall desire to build more healthy and sober friendships in his own life. Expressed social anxiety has been a major deterrent to doing so as pt struggles with feeling awkward and uncomfortable spurring conversation on his own. Noted he is rarely able to make ?small talk? successfully. Recognized avoidance and only calling someone if he has something he needs to tell them as safety behaviors. Shared wanting to work on allowing himself to be less serious in social settings and more comfortable with using humor/silliness. Self-identified an exposure goal for the week as challenging himself to do one ?goof or silly thing? as well as engaging in one ?small talk? conversation at a local AA meeting. Risks/Concerns:: No risks noted. Pt Denies SI, plan, or intent as of this date, 05/28/23 Progress Toward Goals/Plan:: Progress noted. Pt reports continuing to increase comfort in the treatment environment and improved ability to interact with fellow participants. Discussed active application of behavioral activation skills and is working to further increase skill application in additional areas of his life. Specifically identified increasing social skills and supports through AA and finding other social groups to engage with. Continues to endorse self-doubt, anxiety, and avoidance/isolation. Recommended continues IOP tx to improve social skills, reduce safety behaviors, and continue to promote mood stability. Time Stopped:: 12:30
--- NOTE | 2023-06-02 09:00 | BH.SGPN.GN ---
Behaviors/Verbalizations/Mental Status: [] Eye contact is good. Motor activity is appropriate. Appearance is casual. Speech is Appropriate. Mood is depressed. Affect is congruent. Thoughts are linear and logical. No evidence of psychosis. Reviewed daily check in sheet and no reports of suicidal ideations or intent. Client Response/Progress/Benefit: [] pt participated when prompted. Attentive. Daily symptom tracker notes 2/5 for anxiety and /5 for depression. Pt reports negative thoughts and ruminations for most of his day. ? Feel like I?, not accomplishing things or doing enough?. Guilt and remorse over past choices that have placed him in current legal and life situations. He believes that if he can focus on accomplishing ?anything? his mood will improve and he will feel more purpose. In the past week this has helped at times. Benefited from group support, encouragement, and feedback. Will continue in IOP to prevent decompensation, increase healthy coping, and improve functioning. Narrative Note: []
--- NOTE | 2023-06-02 10:15 | BH.SGPN.GN ---
Behaviors/Verbalizations/Mental Status: [Patient was alert and oriented, casually dressed and groomed. Eye contact good, motor activity normal, speech within normal limits. Affect congruent, mood content. Thoughts linear, logical, no signs of hallucinations or delusions. ] Client Response/Progress/Benefit: [Patient was open and participated in group discussions. Attentive during psychoeducation on growth mindset. Participated during the activity. Interactive group discussion on growth mindset in which group verbalized their current fixed mindsets and how they affect their mental health. Patient shared that one of his fixed thoughts was ?It?s too late to change?. Patient benefited from increased awareness of growth mindset and fixed thoughts and how fixed thoughts impact their mental health. Will continue in IOP to promote gains, further combat distorted thinking, and improve daily functioning.] Narrative Note: []
--- NOTE | 2023-06-02 11:10 | BH.SGPN.GN ---
Behaviors/Verbalizations/Mental Status: []Pt alert and oriented, neatly dressed and groomed. Eye contact good. Motor activity appropriate. Speech within normal limits. Affect congruent, mood anxious. Thoughts linear, logical, no signs of hallucinations or delusions. Client Response/Progress/Benefit: [] Pt was an active participant during activity and discussion AEB providing some input, connecting with peers, as well as taking notes throughout. Pt did well to engage as group worked on identifying characteristics and benefits of adopting a growth mindset. Worked with fellow participants in reframing the example fixed thoughts into growth mindset thoughts. Pt worked on changing own fixed thought of ?it?s too late to change? to growth thought of ?I can still change the future/outcome.? Benefitted from discussing benefits of growth mindset and brainstorming strategies for prompting growth-mindset. Pt appeared to benefit from working in small groups to challenge own thoughts and help peers. Pt will continue IOP tx to prevent decompensation, improve daily functioning, and combat distortions. Narrative Note: []
--- NOTE | 2023-06-02 11:19 | BH.TPR ---
Treatment Plan Review Demographics Date of Admission:: 05/13/23 Date of Treatment Plan Review:: 06/02/23 Admitting Diagnoses:: 1. Major depressive disorder, recurrent, severe without psychosis 2. Social anxiety disorder 3. Generalized anxiety disorder 4. Opioid and methamphetamine use disorders (sober for anywhere from 1 to 3 months) Current Diagnoses:: 1. Major depressive disorder, recurrent, severe without psychosis 2. Social anxiety disorder 3. Generalized anxiety disorder 4. Opioid and methamphetamine use disorders (sober for anywhere from 1 to 3 months) Patient Status Patient's Response to Treatment:: Pt is responding well to IOP tx AEB pt's consistent attendance, report of benefitting from group support and education, and self-report of learning healthy coping skills. Pt is engaged in group sessions, but he is not always vocal in big group discussions and reports anxiety in social settings. Pt reports medication compliance and pt does well with completing homework and is improving in personal goal completion. Pt's overall DSM-5 scores decreased by 13% since admission. Status of Current Problems and Symptoms: Pt's symptoms of anxiety have increased since admission which may in part be due to exposure therapy and working on reducing avoidance behaviors. Pt continues to struggle with depression, anxiety, not feeling connected to himself/his relationships, and negative thinking patterns. Pt's depression is decreasing, but pt reports ongoing feelings of being a burden, isolation, and not knowing who he is/what he wants out of life. Progress Problem #1: Problem Name:: Mood instability, hopelessness, and worthlessness. Status of Goals:: Objective 1- in progress. Pt?s DSM-5 scores for depression have decreased 40% since admission. Pt has gained awareness of coping mechanisms that reinforce depression like isolation and pt has been working on reducing this. Pt continues to endorse depressive symptoms such as feeling hopeless, like a burden, and not close with others more than half the days. Objective 2- in progress. Pt is learning about mistaken beliefs and how his self-talk reinforces depression and feelings of worthlessness. He continues to struggle with self-compassion and replacing negative self-talk with more affirmative statements. Team Recommendations:: Treatment team recommends pt continue to work on these tx goals. Therapist also encourages pt to increase communication with supports, increased verbal engagement in group, and use of healthy coping skills to manage depression and reduce isolation. Pt was encouraged to continue setting daily goals to reduce isolation and increase motivation as well as encouraged to re-engage in AA for social support. Problem #2: Problem Name:: Anxiety, ruminations, avoidance Status of Goals:: Objective 1- not complete. Per pt?s DSM-5 pt?s anxiety has increased since admission. Pt admits that he has been avoiding his legal issues until recently and is likely experiencing increased anxiety associated with this as well as working on small exposure goals to reduce social anxiety. Pt has learned healthy coping skills and does report benefitting from the psychoeducation in group sessions. Objective 2- in progress. Pt reports he has been gaining more awareness of his negative thinking patterns and safety behaviors that reinforce anxiety. Pt is continuing to make small strides towards daily exposure goals. Team Recommendations:: Treatment team recommends pt continue to work on these tx goals. Therapist also encourages pt to increase use of emotional regulation and distress tolerance skills. Therapist also encourages pt to communicate with supports and reduce self-sabotaging behaviors like isolation and avoidance.
--- NOTE | 2023-06-02 11:46 | PCM.BH.PN ---
Progress Note Progress Note: History of Present Illness/Interim History: The patient is a 37-year-old single, male with a history of depression, anxiety, opioid and amphetamine use disorder and hypothyroidism who is seen in follow-up at the [facility] behavioral health IOP. I last saw the patient 3 weeks ago and at that time no medication changes were made. According to the staff the patient is attending the program consistently but his engagement is somewhat sporadic. He is learning skills but struggles to use the skills in the moment. His mood is less depressed than when he started the program but there is still some sadness and he still has trouble leaving the house or motivating himself to even get out of bed. He has remained sober from all drugs but continues to vape nicotine daily. He gets occasional urges to use drugs but states that he is able to deal with them. He has not gone back to yet and is still does not have a sponsor and he is unsure why he has not done this yet. He is not sure if he is gaining weight but thinks he might be but has not weighed himself. He denies any self-harm, passive thoughts of , suicidal ideation, plan for suicide, homicidal ideation, hallucinations or delusions. His next court date is July 01 2023. Current Psychiatric Medications: [] Seroquel Exar 25 mg p.o. nightly; Remeron 15 mg p.o. nightly; BuSpar 15 mg p.o. 3 times daily; Lexapro 20 mg p.o. daily; propranolol 10 mg p.o. twice daily Mental Status Examination: [] The patient is a 37-year-old male with glasses who appears normal for stated age and is casually dressed and groomed with good hygiene. He is ambulatory with a normal gait and has no psychomotor agitation or retardation. Eye contact is fair and speech is normal rate and rhythm and fluent with no pressure. Mood is depressed. Affect is full and normal. Thought process is goal-directed and organized. Thought content: There is no evidence of passive thoughts of , suicidal ideation, homicidal ideation, hallucinations or delusions. Patient struggles with motivation. Reality testing is intact. Judgment is intact. Insight is limited. Impulsivity is high. Diagnoses: [] 1. Major depressive disorder, recurrent, severe without psychosis 2. Social anxiety disorder 3. Generalized anxiety disorder 4. Opioid and methamphetamine use disorders (sober since February 2023) 5. Hypothyroidism 6. Primary support, legal and work issues Plan: [] The patient will continue the IOP at [facility] as the structure, support, education and group therapy will hopefully prevent worsening of the patient's symptoms which could lead to hospitalization. He felt safe during the interview and if it anytime he does not feel safe he will let us know or go to the emergency room. The risks, options, possible complications and side effects of the medications were again discussed with the patient and he understands and accepts these. He agrees to try to start walking daily for exercise and eating healthy to help prevent weight gain. He agrees to increase his Remeron to 30 mg p.o. nightly and prescription is sent in for this. He agrees to remain sober. He is strongly advised and agrees to return to his AA meetings and obtain a sponsor. He will continue to follow-up with his outpatient providers and I will see the patient in follow-up while he is in the IOP program and in 2 weeks.
--- NOTE | 2023-06-03 09:05 | BH.SGPN.GN ---
Behaviors/Verbalizations/Mental Status: []Eye contact is good. Motor activity is appropriate. Appearance is casual. Speech is Appropriate. Mood is euthymic. Affect is congruent. Thoughts are linear and logical. No evidence of psychosis. Reviewed daily check in sheet and no reports of suicidal ideations or intent. Client Response/Progress/Benefit: []Pt responded well to session, attentive and engaged. Pt reports feeling confident this morning as pt has been trying to avoid less and face his anxiety more. Pt shared he called both of his attorneys yesterday to try and be proactive about his legal issues. Pt stated I tried to do what was in my control which required self-talk and opposite action. Pt's stressor today is his legal issues. Pt encouraged to continue practicing opposite action and thought challenging to reduce avoidance. Pt appeared to benefit from giving himself credit. Pt will continue IOP tx to prevent decompensation, improve daily functioning, and increase healthy coping skills. Narrative Note: [] Behaviors/Verbalizations/Mental Status: []Eye contact is good. Motor activity is appropriate. Appearance is casual. Speech is Appropriate. Mood is euthymic. Affect is congruent. Thoughts are linear and logical. No evidence of psychosis. Reviewed daily check in sheet and no reports of suicidal ideations or intent. Client Response/Progress/Benefit: []Pt responded well to session, attentive and engaged. Pt reports feeling confident this morning as pt has been trying to avoid less and face his anxiety more. Pt shared he called both of his attorneys yesterday to try and be proactive about his legal issues. Pt stated I tried to do what was in my control which required self-talk and opposite action. Pt's stressor today is his legal issues. Pt encouraged to continue practicing opposite action and thought challenging to reduce avoidance. Pt appeared to benefit from giving himself credit. Pt will continue IOP tx to prevent decompensation, improve daily functioning, and increase healthy coping skills. Narrative Note: []
--- NOTE | 2023-06-03 10:10 | BH.SGPN.GN ---
Behaviors/Verbalizations/Mental Status: [] Eye contact is good. Motor activity is appropriate. Appearance is casual. Speech is Appropriate. Mood is content. Affect is congruent. Thoughts are linear and logical. No evidence of psychosis. Client Response/Progress/Benefit: [] Pt was an active participant in group discussions. Attentive during psychoeducation on the 4 communication styles (Passive, Passive-Aggressive, Aggressive, and Assertive) and the obstacles to effective communication. Showed increased engagement when compared to previous groups. Contributed during interactive discussion on the benefits of communicating effectively which included: getting needs met, building connection, decreases stress, improved relationships, increased motivation, and increased understanding of others. Worked well in small group in which pt and peers identified the benefits and disadvantages to the different communication styles. Benefited from increased understanding of communication styles and how these can impact effective communication. Will continue in IOP to continue use of healthy coping skills, build confidence, and prevent decompensation.
--- NOTE | 2023-06-03 11:15 | BH.SGPN.GN ---
Behaviors/Verbalizations/Mental Status: []Pt alert and oriented, neatly dressed and groomed. Eye contact good. Motor activity appropriate. Speech within normal limits. Affect congruent, mood anxious and euthymic. Thoughts linear, logical, no signs of hallucinations or delusions. Client Response/Progress/Benefit: [] Pt responded well to session AEB Pt listening attentively to others and providing input during group discussion on the pay offs and costs of the different communication styles. Pt able to connect how current communication style of passive-aggressive and assertive communication impacts mental health and relationships. Pt engaged in activity, taking on a leadership role. Connected with peers comments about importance of using assertive communication. Pt reported he wants to work on being more mindful about staying on topic when communicating with others. Pt seemed to benefit from increasing awareness of healthy strategies to improve communication. Will continue IOP tx to improve self-confidence, promote mood stability, and continue to encourage coping skill application. Narrative Note: []
--- NOTE | 2023-06-04 09:00 | BH.SGPN.GN ---
Behaviors/Verbalizations/Mental Status: [ Patient was alert and oriented, appropriately dressed and groomed. Eye contact was good, motor activity normal, speech within normal limits. Affect congruent, mood content. Thoughts linear, logical, no signs of hallucinations or delusions. Reviewed Patients symptom tracker and the patient reports low/moderate in anxiety/panic attacks, agitation/irritability/anger, and low for depressed mood. The patient does not report symptoms in self-harm urges or thoughts/risk of suicide. ] Client Response/Progress/Benefit: [Patient was engaged and open to the discussion. Patient reported his mood to be ?hopeful?. Patients first win is that he has been cooking ?real meals? more. Patient shared that he typically microwaves things, but he has been cooking meals instead. The patient could not identify a second win. The patients stressor was that he is unable to stop himself from overthinking and worrying about his court hearing coming up. Patient was interactive and respectful with other group members about their mental wins and stressors. Patient benefited from the discussion by listening to feedback and giving input on his peer?s stressors and mental health wins. Patient will continue with IOP treatment to help develop healthy skills, promote mood stability, and improve distress tolerance. ] Narrative Note: []
--- NOTE | 2023-06-04 10:10 | BH.SGPN.GN ---
Behaviors/Verbalizations/Mental Status: []Pt alert and oriented, casually dressed and groomed. Eye contact good. Motor activity appropriate. Speech within normal limits. Affect congruent, mood euthymic. Thoughts linear, logical, no signs of hallucinations or delusions. Client Response/Progress/Benefit: [] Pt receptive to session AEB contributing to small group discussion, as well as listening attentively to others, and taking notes. Worked with group to brainstorm the positive and negative aspects of stress on physical and mental health. Group did well to identify the benefits of stress as well as the impact of distress on performance, relationships, and mental health. Pt identified their personal top stressors as: legal system, mental functioning/mood, and physical health. Pt seemed to benefit from increased awareness of current stressors and impact stress has on mental health. Recommended to continue IOP tx to improve healthy coping skills, challenge negative thinking, and prevent decompensation.
--- NOTE | 2023-06-04 10:15 | BH.SGPN.GN ---
Behaviors/Verbalizations/Mental Status: [Patient was alert and oriented, casually dressed and groomed. Eye contact good, motor activity normal, speech within normal limits. Affect congruent, mood content. Thoughts linear, logical, no signs of hallucinations or delusions. ] Client Response/Progress/Benefit: [Patient was open and participated in group discussions. Attentive during psychoeducation on stress. Participated during the activity. Interactive group discussion on stress in which group verbalized their current stresses in their lives and if certain stressors were larger than others. Patient stated that he physically feels sick when he is stressed and will feel ?off?. Patient benefited from increased awareness of the effects of stress on their mental health. Will continue in IOP to promote gains, further combat distorted thinking, and improve daily functioning.] Narrative Note: []
--- NOTE | 2023-06-04 11:15 | BH.SGPN.GN ---
Behaviors/Verbalizations/Mental Status: []Pt alert and oriented, neatly dressed and groomed. Eye contact good. Motor activity appropriate. Speech within normal limits. Affect congruent, mood anxious. Thoughts linear, logical, no signs of hallucinations or delusions. Client Response/Progress/Benefit: [] Pt was an active participant in group discussions and experiential activity. Was able to identify the connection between the experimental activity and utilization of stress management skills. Attentive during psychoeducation on the 4 A's (Avoid, adapt, alter, accept) of coping with stress as well as strategies to identify stressors in which one has no control, little control, or a great deal of control over. Pt shared plans to utilize the skill of acceptance by working on self-forgiveness of his mental health functioning. Benefited from increased awareness of stress management strategies. Will continue in IOP to prevent decompensation, increase self-compassion, and reduce avoidance. Narrative Note: []
--- NOTE | 2023-06-04 21:49 | BH.MDN_ITS ---
Multi-Disciplinary Note Note 30-min Individual: Time Started:: 08:45 Date: 06/06/23 Purpose of session/treatment goals addressed:: Purpose of session was to work on tx plan goal #1 and introduce mistaken beliefs. Eye Contact:: Good Motor Activity:: Appropriate Appearance:: Neat and Casual Speech:: Appropriate Mood:: Euthymic and Anxious Affect:: Congruent Thoughts:: Linear, Logical and No evidence of hallucinations/delusions noted Staff Interventions:: thought challenging, motivational interviewing, psychoeducation on: (mistaken beliefs, provided mistaken belief assessment to complete as homework), CBT techniques and strengths perspective Client Response:: Pt responded well to session, openly discussing tx progress as well as areas for continued focus. Pt reports feeling he is improving upon his ability to apply skills he has learned in group and individual sessions, specifically grounding like the 5-senses or deep breathing. Noted improved ability to manage anxious thoughts and feeling more comfortable engaging with peers. Does continue to report struggling with socialization, which has prevented pt from following through with goal to begin attending AA on a regular basis. Did identify plans to attend a [facility] recovery group on Wednesday, as he feels this will be more in line with his values and needs from a support group. Pt went on to report he has been able to find more daily positives and feels he has made progress in reducing his depression. Pt does continue to struggle with self-deprecation, especially following social interactions or thinking about his current legal stressors. Pt reports trying to focus on the ?here and now? but is still struggling with self-compassion and acceptance. Pt receptive of psychoeducation on negative core beliefs and how his own core beliefs may be reinforcing depression sx. Willing to complete mistaken beliefs assessment to review in next session. Risks/Concerns:: No risks noted. Pt Denies SI, plan, or intent as of this date, 06/04/23 Progress Toward Goals/Plan:: Progress noted. Pt reports continuing to increase comfort in the treatment environment and improved ability to interact with fellow participants; however, continues to report difficulties socializing outside tx environment. Plan is to continue to working on exposure goals to improve in this area. Pt additionally continues to struggle with negative self- talk which will be an ongoing focus of treatment. He is however making progress in active application of anxiety management and grounding skills. Recommended continued IOP tx to improve social skills, reduce negative self-talk and improve self-compassion, and continue to promote mood stability. Time Stopped:: 09:15
--- NOTE | 2023-06-07 09:00 | BH.SGPN.GN ---
Behaviors/Verbalizations/Mental Status: [Patient was alert and oriented, appropriately dressed and groomed. Eye contact was good, motor activity normal, speech within normal limits. Affect congruent, mood content. Thoughts linear, logical, no signs of hallucinations or delusions Reviewed Patients symptom tracker and the patient reports depressed mood, anxiety/panic attacks, aggravation/irritation/anger, self-harm urges, and risk/thoughts of suicide within patients normal base level.] Client Response/Progress/Benefit: [ Patient was engaged and open to the discussion. Patient reported his mood to be ?eager?. Patients first win was that he woke up early naturally today. Patient shared that he normally is a ?night owl? and sleeps until 11 or 12 in the afternoon which he feels negatively impacts him. Patients second win is that he?s been managing stress about court better. It was recommended in a prior group that he only give himself a certain amount of time to worry about court and he implemented this because it worked. The stressor he says is not really a stress but just ?annoying adult stuff?. He shared he has a bunch of errands to run after group that he does not want to do. Patient was interactive and respectful with other group members about their mental wins and stressors. Patient benefited from the discussion by listening to feedback and giving input on his peer?s stressors and mental health wins. Patient will continue with IOP treatment to help develop healthy skills, promote mood stability, and improve distress tolerance. ] Narrative Note: []
--- NOTE | 2023-06-07 10:10 | BH.SGPN.GN ---
Behaviors/Verbalizations/Mental Status: []Pt alert and oriented, casually dressed and groomed. Eye contact good. Motor activity appropriate. Speech within normal limits, quiet. Affect congruent, mood anxious and dysthymic. Thoughts linear, logical, no signs of hallucinations or delusions. Client Response/Progress/Benefit: []Pt receptive of session, actively engaged throughout AEB taking notes, providing some input, and listening to discussion. Appeared to connect with group topic of cognitive distortions and the impact of thought patterns on mental health, coping behaviors, and relationships. Pt reports connecting with distortions of mental filter, jumping to conclusions, and should and musts. Pt appeared to benefit from gaining insight on distorted thinking patterns and how this impacts overall mental health. Will continue IOP tx to increase healthy coping skills, challenge negative thinking, maintain sobriety, and prevent decompensation.
--- NOTE | 2023-06-07 11:15 | BH.SGPN.GN ---
Behaviors/Verbalizations/Mental Status: [] Eye contact is good. Motor activity is within normal limits. Appearance is casual. Speech is Appropriate. Mood is content, anxious. Affect is congruent. Thoughts are linear and logical. No evidence of psychosis. Client Response/Progress/Benefit: [] Pt was an active participant during group discussions and activity, providing slightly more input and examples than in prior groups. Pt was placed in a smaller group and participated in quiz-show format in which small groups competed against each-other to answer questions based on identifying, challenging, and reframing cognitive distortions. Pt was engaged in the smaller group, participated in group interactions to brainstorm answers, and appeared to be comprehending cognitive distortions. Stated learning that ?many distorted thoughts are related and one can often lead into another?. Benefited from gaining further insight and awareness of cognitive distortions as well as practicing ways to reframe and challenge thoughts. Will continue in IOP to promote self-compassion, stabilize mood, and increase application of healthy coping skills. Narrative Note: []
--- NOTE | 2023-06-08 09:00 | BH.SGPN.GN ---
Behaviors/Verbalizations/Mental Status: [] Eye contact good, casually dressed, motor activity appropriate, speech normal rate and tone, mood euthymic, congruent affect, thoughts linear and intact, no evidence of delusions or hallucinations. Reviewed client?s symptom tracker, no risk for suicidal ideation, plan, or intent as of Client Response/Progress/Benefit: [] Client responded well to session, offering ideas to peers and providing encouragement. Client reports feeling decent this morning. Client's discussed how he had to help his aunt with her computer and instead of rushing through it and doing it for her, he practiced patience and went through steps to help her. Client discussed how it frustrated him a bit since computers come so easily to him, but was able to challenge thoughts to make it a positive experience. Client talked about how things are going well for the most part and discussed ways he is managing sleep and trying to change habits to create a better daily schedule for himself. Client will continue IOP tx to increase skill set to manage mental health symptoms and prevent decompensation. Narrative Note: []
--- NOTE | 2023-06-08 10:10 | BH.SGPN.GN ---
Behaviors/Verbalizations/Mental Status: [] Client alert and oriented, casually dressed and groomed. Eye contact good. Motor activity appropriate. Speech within normal limits. Affect congruent, mood euthymic. Thoughts linear, logical, no signs of hallucinations or delusions. Client Response/Progress/Benefit: [] Client was an active participant, AEB taking notes and providing input in group discussions and activities. Attentive during psychoeducation. Client engaged during interactive discussion in which the group defined self-care and discussed its benefits. Group discussed barriers to engaging in self-care. Client identified personal barrier of he feels selfish at times doing self care. Client participated in small groups where they worked to identify common self-care ?myths?. Benefited from increased awareness of self-care, its benefits, and the consequences of not utilizing self-care strategies. Will continue IOP tx to prevent decompensation, increase healthy thought patterns, and continue to improve mood stability. Narrative Note: []
--- NOTE | 2023-06-08 11:10 | BH.SGPN.GN ---
Behaviors/Verbalizations/Mental Status: [] Client alert and oriented, neatly dressed and groomed. Eye contact good. Motor activity appropriate. Speech within normal limits. Affect congruent, mood euthymic. Thoughts linear, logical, no signs of hallucinations or delusions. Client Response/Progress/Benefit: [] Client engaged participant AEB completing self-assessment worksheet and providing input throughout discussion. Client completed worksheet identifying current self-care practices and what self-care activities client wants to start using. Client selected psychological self-care to begin practicing more consistently. Client plans to do this by journaling, challenging distortions, and setting limits/timers on himself for tasks. Appeared to benefit from completing the self-care evaluation and gaining insights into current self-care practices, as well as identifying areas in which client would like to improve upon. Client will continue IOP tx to prevent decompensation, increase emotional regulation skills, and improve daily functioning. Narrative Note: []
--- NOTE | 2023-06-11 09:00 | BH.SGPN.GN ---
Behaviors/Verbalizations/Mental Status: [Patient was alert and oriented, appropriately dressed and groomed. Eye contact was good, motor activity normal, speech within normal limits. Affect congruent, mood content. Thoughts linear, logical, no signs of hallucinations or delusions. Reviewed Patients symptom tracker and the patient reports depressed mood, anxiety/panic attacks, aggravation/irritation/anger, self-harm urges, and risk/thoughts of suicide within patients normal base level.] Client Response/Progress/Benefit: [ Patient was engaged and open to the discussion. Patient reported his mood to be ?hopeful?. Patients first win was that he had a good thanksgiving and didn?t do much but eat and watch football. The second win was that he made one of the sides for thanksgiving and it turned out good and people liked it. He said that it should have been sweeter but was trying to make it healthier which bummed him out a little. Patient shared his stress was he was feeling guilty for binge eating during Thanksgiving.] Narrative Note: []
--- NOTE | 2023-06-11 10:15 | BH.SGPN.GN ---
Behaviors/Verbalizations/Mental Status: []Pt alert and oriented, casually dressed and groomed. Eye contact good. Motor activity appropriate. Speech within normal limits. Affect congruent, mood anxious. Thoughts linear, logical, no signs of hallucinations or delusions. Client Response/Progress/Benefit: []Pt was an active participant in group discussions. Attentive during psychoeducation on 4 types of conflict styles (Competing, Collaborating, Avoiding, and Accommodating). Worked with group to define conflict and identify how conflict can be beneficial. With peers, pt identified barriers to addressing or managing conflict which included: not wanting to hurt others, unmanaged emotions, assumptions, and cognitive distortions. Pt believes they most often use the collaborating type, but pt can become a competing type which leads to over-analyzing and sometimes yelling.?Benefited from group due to increase insight and awareness of benefits to conflict, conflict styles, and obstacles to managing conflict. Will continue in IOP to reduce distorted thinking patterns which reinforce anxiety, continue to promote healthy coping skills, and increase self-confidence.? Narrative Note: []
--- NOTE | 2023-06-11 11:10 | BH.SGPN.GN ---
Behaviors/Verbalizations/Mental Status: []Pt alert and oriented, casually dressed and groomed. Eye contact good. Motor activity appropriate. Speech within normal limits. Affect congruent, mood euthymic. Thoughts linear, logical, no signs of hallucinations or delusions. Client Response/Progress/Benefit: [] Pt was an active participant in group discussions and activity. Attentive during psychoeducation. Along with peers was able to reflect on what conflict resolution skills can be useful outside of IOP. Pt chose to continue to work on the conflict resolution skills of not using not yelling and taking a time out if things get too heated during conflict. Benefited from practicing and learning conflict resolution skills. Will continue in IOP to promote mood stability, reduce negative thinking patterns, and increase self-confidence. Narrative Note: []
--- NOTE | 2023-06-15 09:05 | BH.SGPN.GN ---
Behaviors/Verbalizations/Mental Status: [] Eye contact is good. Motor activity is appropriate. Appearance is casual. Speech is Appropriate. Mood is depressed. Affect is flat. Thoughts are linear and logical. No evidence of psychosis. Reviewed daily check in sheet and no reports of suicidal ideations or intent. Client Response/Progress/Benefit: [] Pt participated when prompted. Attentive. Daily symptom tracker notes 3/5 for irritability and 2/5 for depression. Mental health win is that he is decorating around the house for the holidays. Able to identify how the holiday environment can benefit his overall mental health. He continues to ruminate on upcoming court date and how this has the possibility to impact him for the next several years. I keep telling myself that I'm doing what I can and that worry won't help ... but I worry all day. Peers discussed radical acceptance and how this skills can be helpful for his current situation which was beneficial. Limited social engagement outside of IOP. Limited progress noted per pt report. Benefited from group support, encouragement, and feedback. Will continue in IOP to prevent decompensation, increase healthy coping, and improve daily functioning. Narrative Note: []
--- NOTE | 2023-06-15 10:10 | BH.SGPN.GN ---
Behaviors/Verbalizations/Mental Status: [] Eye contact is good. Motor activity is appropriate. Appearance is casual. Speech is Appropriate. Mood is euthymic. Affect is congruent. Thoughts are linear and logical. No evidence of psychosis. Client Response/Progress/Benefit: [] Client was an active participant during interactive group discussions. Attentive during psychoeducation on the six types of boundaries (physical, emotional, intellectual, sexual, time, and material) AEB note-taking. Along with peers contributed to interactive discussion on defining what a boundary is in mental health. Client along with peers identified challenges to setting boundaries which included; fear of hurting other people, people pleasing mentality, and guilt. Client along with peers identified the benefits to setting boundaries such as having more time for self, not feeling taken advantage of, and improved mental health. Group discussed the mental health benefits to establishing boundaries at work, school, and home. Client benefited from increased awareness and insight on the importance/benefit to setting health boundaries. Will continue in IOP to prevent decompensation, stabilize anxiety, and improve functioning. Narrative Note: []
--- NOTE | 2023-06-15 11:15 | BH.MDN ---
Multi-Disciplinary Note Note 45-min Individual: Time Started:: 11:30 Date: 06/15/23 Purpose of session/treatment goals addressed:: Reviewed current symptoms and progress in IOP. Provided education and examples of challenging core beliefs and stigma. Eye Contact:: Good Motor Activity:: Appropriate Appearance:: Casual Speech:: Appropriate Mood:: Depressed Affect:: Congruent Thoughts:: Linear, Logical and No evidence of hallucinations/delusions noted Staff Interventions:: thought challenging, psychoeducation on: (core beliefs) and strengths perspective Client Response:: Pt shared he has begun to attend AA meetings in [place] more consistently. Shared that the purpose of this is two-fold as it helps in his recovery and provides increased social engagement. Continues to isolate at home for a majority of his day. Struggling to overcome beliefs that he has ruined his life and career due to his drug use and legal issues. 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 Upcoming court date in October. Ruminations and uncertainly regarding the outcome of legal issues. Majority of the session was spent challenging mistake beliefs and current perspective. Pt assumes everyone thinks I'm a drug addict. Significant stigma associated with addiction struggles. Responded well at times to reframing and challenging stigma, core beliefs, and perspectives regarding the future. Pointed out positive psychology traits gained from past experience such as resiliency, vulnerability, and knowledge. Risks/Concerns:: Denies active SI, plan, or intent. No concerns noted. Progress Toward Goals/Plan:: Limited progress noted however he did follow through with engaging in peer recovery groups. Utilizing skills such as opposite-action, mindfulness, and acceptance however continues to isolation and ruminate on past actions and uncertainty for the future. Struggling with reframing, challenging, and internal coping strategies to mitigate distress. Responded well to challenging and reframing stigma and negative thoughts in session. Briefly discussed discharge. He is currently linked with psychiatrist and therapist. Will continue in IOP to prevent decompensation, increase healthy coping, and improve functioning. Time Stopped:: 12:15
--- NOTE | 2023-06-16 09:05 | BH.SGPN.GN ---
Behaviors/Verbalizations/Mental Status: [] Eye contact is good. Motor activity is appropriate. Appearance is casual. Speech is Appropriate. Mood is depressed/irritable. Affect is congruent. Thoughts are linear and logical. No evidence of psychosis. Reviewed daily check in sheet and no reports of suicidal ideations or intent. Client Response/Progress/Benefit: [] Pt participated when prompted. Attentive. Pt states I'm not sure about any wins. Struggled to identify points during his day yesterday in which he used skills. 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 Some relief however the uncertainty and unknown continue to impact his mental health and functioning. Struggles to practice radical acceptance, re-directing focus, and focusing on present / what he can control. 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 Limited progress noted however his daily symptom tracker scores have decreased. He was also more engaged with peers this AM.Benefited from group support, encouragement, and feedback. Will continue in IOP to prevent decompensation, stabilize mood, and increase healthy coping skills. Narrative Note: []
--- NOTE | 2023-06-16 10:10 | BH.SGPN.GN ---
Behaviors/Verbalizations/Mental Status: []Eye contact is fair. Motor activity is appropriate. Appearance is casual. Speech is Appropriate. Mood is euthymic. Affect is congruent. Thoughts are linear and logical. No evidence of psychosis. Client Response/Progress/Benefit: []Pt was an active participant in group discussions AEB listening attentively to others and providing feedback at times. Participated in and was engaged during experiential activity. Able to relate activity to group topic of FOF. Engaged during interactive discussion on what failure means to the group in which peers identified and defined failure. Group was able to identify impact of fear of failure on mental health. Attentive during interactive discussion on the role that FOF plays in mental wellness, depression, anxiety, and growth. Pt reported fear of failure has kept pt from forming relationships and being successful. Benefited from increased awareness of how the role that FOF plays in mental health and decision-making. Will continue in IOP to promote mood stability, gain healthy coping skills, and reduce avoidance.? Narrative Note: []
--- NOTE | 2023-06-16 11:10 | BH.SGPN.GN ---
Behaviors/Verbalizations/Mental Status: []Pt alert and oriented, casually dressed and groomed. Eye contact good. Motor activity appropriate. Speech within normal limits. Affect congruent, mood euthymic and anxious. Thoughts linear, logical, no signs of hallucinations or delusions. Client Response/Progress/Benefit: []Pt responded well to session, engaged in the experiential activity and attentive throughout group processing. Pt completed fear of failure worksheet and was able to identify thoughts and behaviors that reinforce personal fear of failure including: impostor syndrome, low distress tolerance, fear of judgement, and negative core beliefs. Pt participated in group discussion regarding strategies to overcome fear of failure. Identified wanting to work on?using?self-compassion more often and continuing to practice opposite action. Appeared to benefit from increased knowledge of strategies to combat fear of failure and gaining self-awareness. Pt will continue IOP tx to promote mood stability and increase self-compassion.? Narrative Note: []
--- NOTE | 2023-06-16 12:01 | PCM.BH.PN_ITS ---
Progress Note Progress Note: History of Present Illness/Interim History: The patient is a 37-year-old single male with a history of depression, anxiety, and opioid and amphetamine use disorder sober for 3 months who is seen in follow-up at the [facility] behavioral health IOP. Last saw the patient 2 weeks ago and at that time there were his Remeron was increased to help with his anxiety and depression. According to the staff the patient has been at consistent in his attendance and engaged in the program. Patient states that he continues to ruminate and worry over his ongoing stressors of legal and court issues with an upcoming court date on July 01, 2023. Despite being worried about this he feels that his mood has improved somewhat and he feels much more motivated to do things and is easier for him to leave the house and not isolate. He had remained sober from all substances and is now able to go out and attend AA meetings. He still has some initial insomnia present but sleep has overall improved. He has not noticed that he is gaining weight. He denies thoughts of self-harm, passive thoughts of , suicidal ideation, plan for suicide, homicidal ideation, hallucinations or delusions. Current Psychiatric Medications: [] Seroquel 25 mg p.o. nightly (he takes this only as needed and has not needed it in the past few weeks); Remeron 30 mg p.o. nightly (increased 2 weeks ago); BuSpar 15 mg p.o. 3 times daily; Lexapro 20 mg p.o. daily; propranolol 10 mg p.o. twice daily Mental Status Examination: [] The patient is a 37-year-old male who wears glasses and appears normal for stated today age and is ambulatory with a normal gait. He is casually dressed and groomed with good hygiene and has no psychomotor agitation or retardation. Eye contact is fair to good and speech is normal rate and rhythm and fluent with no pressure. Mood is depressed. Affect is full and normal. Thought process is goal-directed and organized. Thought content: The patient remains worried about legal issues. There is no evidence of passive thoughts of , suicidal ideation, plan for suicide, homicidal ideation, hallucinations or delusions. Reality testing is intact. Judgment is intact. Insight is fair. Impulsivity is high. Diagnoses: [] 1. Major depressive disorder, recurrent, severe without psychosis 2. Social anxiety disorder 3. Generalized anxiety disorder 4. Opioid and methamphetamine use disorders (sober since February 2023) 5. Hypothyroidism 6. Primary support, legal and work issues Plan: [] The patient will continue the IOP at [facility] as the structure, support, education and group therapy will hopefully prevent worsening of the patient's symptoms which could require hospitalization. He felt safe during the interview and if it anytime he does not feel safe he will let us know or go to the emergency room. No medication changes were made today. He agrees to try to continue walking daily for exercise and eating healthy to help prevent weight gain. He agrees to continue to remain sober and to attend AA meetings and ultimately obtain a sponsor. He will continue to follow-up with his medical and psychiatric providers and I will see the patient in follow-up while he is in the program.
== END 2023-06-17 23:59 ==
LOC: BHIOP 06:50
PROVIDERS: PCP Internal Medicine; Referring Provider Psychiatry & Neurology Psychiatry; Visit Provider Psychiatry & Neurology Psychiatry
DX: F33.2 Major depressive disorder, recurrent severe without psychotic features (principal); F41.8 Other specified anxiety disorders; F41.1 Generalized anxiety disorder; E03.9 Hypothyroidism, unspecified; F11.91 Opioid use, unspecified, in remission
CPT/HCPCS: 99213; 99214; H2012; H2020; S9480; 90832; 90834

== ENCOUNTER 2023-06-18 07:08 | Outpatient (RCR) | payer MEDICAID, SELFPAY ==
[2023-06-18 00:38] VITALS: BP 150/96; PULSE 70
--- NOTE | 2023-06-18 10:10 | BH.SGPN.GN ---
Behaviors/Verbalizations/Mental Status: [] Eye contact is fair. Motor activity is appropriate. Appearance is casual. Speech is Appropriate. Mood is euthymic. Affect is constricted. Thoughts are linear and logical. No evidence of psychosis. Client Response/Progress/Benefit: [] Client connected with topic of Anxiety and participated throughout, providing input and taking notes. Attentive during psychoeducation on different anxiety disorders and participated throughout interactive discussion defining anxiety and identifying cognitive and physiological symptoms of anxiety. Group discussed how anxiety can prevent them from trying new things. Common physical and cognitive symptoms identified by group included: ?what if thoughts?, ?fear of failure?, negative self-talk, feeling nauseous, shaky, and temperature change. Client identified avoiding, isolating, and distraction as their safety behaviors. Benefited from increased awareness and insight on anxiety and its impact. Plan is to continue in IOP to promote healthy coping skills, build confidence, challenge negative thinking, and prevent decompensation.
--- NOTE | 2023-06-18 11:10 | BH.SGPN.GN ---
Behaviors/Verbalizations/Mental Status: []Client alert and oriented, casually dressed and groomed. Eye contact good. Motor activity appropriate. Speech within normal limits. Affect congruent, mood euthymic and anxious. Thoughts linear, logical, no signs of hallucinations or delusions. Client Response/Progress/Benefit: []Client was an active participant AEB pt providing input and listening attentively to peers. Attentive during psychoeducation on mindfulness coping skills and their impact on reducing anxiety and improving overall mental health wellness. Group was able to identify self-soothing and mind-based coping skills which included: 5-senses, meditation, deep breathing, journaling, and body scan. Client would like to work on calming skill of going for walks daily and deep breathing. Appeared to benefit from increasing repertoire of anxiety reduction skills. Client will continue in [facility] tx to improve mood stability, further reduce depression, and promote healthy skill application. Narrative Note: []
--- NOTE | 2023-06-22 09:05 | BH.SGPN.GN ---
Behaviors/Verbalizations/Mental Status: [] Eye contact is good. Motor activity is appropriate. Appearance is casual. Speech is Appropriate. Mood is depressed. Affect is congruent. Thoughts are linear and logical. No evidence of psychosis. Reviewed daily check in sheet and no reports of suicidal ideations or intent. Client Response/Progress/Benefit: [] Pt particiapted at times during the group discussions. Attentive. Daily symptom tracker noted 1/5 for depression, anxiety, and irritability. He reported picking up additional work over the past several days which was physically taxing however rewarding. It felt good mentally . This helped with purpose, motivation, and feeling accomplished. It also provided distraction and social engagement. Reports decreased rumination this week. He also spoke with his energy attorney regarding an upcoming court date and received positive news which has also helped decrease worry. Progress noted per pt report. Insight that engaging in work, distraction, social outlets, and purposeful tasks overall improves his mental health. Benefited from group support, encouragement, and feedback. Will continue in IOP to maintain prevent decompensation, increase healthy coping, and to improve functioning. Narrative Note: []
--- NOTE | 2023-06-22 10:10 | BH.SGPN.GN ---
Behaviors/Verbalizations/Mental Status: [] Eye contact is good. Motor activity is appropriate. Appearance is casual. Speech is Appropriate. Mood is euthymic and anxious. Affect is congruent. Thoughts are linear and logical. No evidence of psychosis. Client Response/Progress/Benefit: [] Pt was an active participant during group discussions and group activities. Attentive during psychoeducation. Engaged during activity in which they identified which type of foods (i.e. carbs, sugar, salt, fast food, caffeine, etc) they seek out when sad, tired, angry, rushed, anxious, etc. Pt was able to identify the impact that certain foods have on their mental health through group example which was beneficial. Identified how he turns to foods that are high is sugar or carbs when feeling depressed which long-term reinforces depression. Benefited from increased awareness of the connection between nutrition and mental health. Will continue in IOP to prevent decompensation, increase self-confidence, and continue to improve functioning. Narrative Note: []
--- NOTE | 2023-06-22 11:10 | BH.SGPN.GN ---
Behaviors/Verbalizations/Mental Status: []Pt alert and oriented, neatly dressed and groomed. Eye contact good. Motor activity appropriate. Speech within normal limits. Affect congruent, mood euthymic. Thoughts linear, logical, no signs of hallucinations or delusions. Client Response/Progress/Benefit: [] Pt was an active participant throughout AEB contributing to group discussion and taking notes. Pt provided input during small group discussion on strategies to combat each factor maintaining adverse nutritional cycles. Worked with group to identify ways to foster more mindful nutritional choices. Each group participant identified one small step they could take today to begin establishing mental wellness promoting nutritional choices. Pt shared plans to?start cooking again which pt has gotten away from and planning healthier meals. Appeared to benefit from gaining insight into mental wellness centered nutrition and identifying personal steps Pt can take to support own nutritional psychology. Recommended continued IOP tx to further increase healthy coping repertoire, promote mood stability, and improve overall functioning.? Narrative Note: []
--- NOTE | 2023-06-23 09:02 | BH.SGPN.GN ---
Behaviors/Verbalizations/Mental Status: [] Pt alert and oriented, casually dressed and groomed. Eye contact good. Motor activity appropriate. Speech within normal limits. Affect congruent, mood dysthymic. Thoughts linear, logical, no signs of hallucinations or delusions. Reviewed pt?s symptom tracker, pt reports no suicidal ideation or intention. Client Response/Progress/Benefit: [] Client responded well to session as evidenced by listening attentively to others, providing feedback, and processing with group. Client reported he is feeling frustrated with himself because his brother is on vacation and client is missing out due to the choices he has made in his life. Client stated he is struggling with dealing with the anger and feelings like he should be angry at himself because he can't release the anger. Client connected with group feedback he can use the anger to motivate him to work on himself. Client noted mental health positive as taking a rest day yesterday because he was feeling tired. Client seemed to benefit from support from others and highlighting progress he has made. Client to continue IOP to continue use of healthy coping skills, challenge distorted thoughts, and prevent decompensation.
--- NOTE | 2023-06-23 10:10 | BH.SGPN.GN ---
Behaviors/Verbalizations/Mental Status: [] Eye contact is good. Motor activity is appropriate. Appearance is casual. Speech is Appropriate. Mood is anxious. Affect is congruent. Thoughts are linear and logical. No evidence of psychosis. Client Response/Progress/Benefit: [] Pt was an active participant in group discussion. Attentive. Participated during interactive discussion on what is meant by Taking Action and what is holding them back from taking action on their mental health. Participated with peers during small group discussions on the impact of negative thoughts, depression, anxiety, guilt, low self-esteem, and anger on an individual's functioning. Areas that patient wished to gain more control over include; negative self-talk, unhealthy coping, and isolating . Believes that if they can gain more control over those areas of their life they will not be as scared or pessimistic and take more chances . Benefited from increased awareness of obstacles to mental wellness. Will continue in IOP to maintain gains, increase healthy coping, and improve functioning. Narrative Note: []
--- NOTE | 2023-06-23 11:10 | BH.SGPN.GN ---
Behaviors/Verbalizations/Mental Status: []Pt alert and oriented, casually dressed and groomed. Eye contact good. Motor activity appropriate. Speech within normal limits. Affect congruent, mood calm. Thoughts linear, logical, no signs of hallucinations or delusions. Client Response/Progress/Benefit: [] Pt responded well to session, taking notes and participating in worksheet discussion. Pt connected with the zones of action/change and that making sustainable change comes from stepping out of one?s comfort zone into the learning zone. Pt set a goal to gain control over their isolation. Pt will do this by going to 1-2 AA meetings every week. Pt identified support they might need as transportation and a meeting schedule. Appeared to benefit from identifying a small goal to benefit mental health. Will continue IOP tx to promote use of healthy coping skills and improve mood stability. Narrative Note: []
--- NOTE | 2023-06-23 12:49 | BH.MDN_ITS ---
Multi-Disciplinary Note Note 30-min Individual: Time Started:: 12:00 Date: 06/23/23 Purpose of session/treatment goals addressed:: Reviewed current symptoms and stressors, addressed treatment plan goal #2. Began d/c planning, specifically identifying alternative sources of support to aid in maintaining sobriety. Eye Contact:: Good Motor Activity:: Appropriate Appearance:: Neat and Casual Speech:: Appropriate Mood:: Euthymic and Anxious Affect:: Congruent Thoughts:: Linear, Logical and No evidence of hallucinations/delusions noted Staff Interventions:: thought challenging, motivational interviewing, CBT techniques and strengths perspective Client Response:: Pt receptive of session, more openly engaged than in some prior sessions. Discussed following through with his goal from prior session to begin attending the AA meeting in [place]. Expressed however that although this was a positive experience, he feels he may better connect with NA meetings as he struggles more with addictions other than alcohol. Pt indicated there is an NA meeting in [place] on evenings that he previously attended and would like to get back to. Pt shared this would help continue socialization following IOP d/c. Expressed anxiety about going back to the meeting as in the past had a sponsor and had been regularly attending prior to quitting. Shared he had ?just dropped off? in the past and ended up relapsing, so he fears judgement. Did well to challenge these thoughts and recognize the benefits of returning to NA. Pt provided insight that lack of connection and limited social support led to relapse in the past. Noted getting back into c onsistent meetings would continue to aid in relapse prevention. Reports plans to get another sponsor. Additionally, pt noted he has been reaching out to healthy supports more and texting to check-in rather than only when needing something. Expressed feeling more connected with others as well. Plans to go to the night meeting this week and see if he is able to make any connections with others attending. Risks/Concerns:: Denies active SI, plan, or intent as of this date 06/23/23. No concerns noted. Progress Toward Goals/Plan:: Progress noted. Pt reports continuing to reach out to supports and improved communication on a regular basis with them. Pt is taking steps to accept his legal issues and focus on what is in his control. Reports improved mood overall and increased ability to manage anxiety through grounding, small exposure goals, and thought challenging. Pt reports some difficulties with comparing self with others, negative thinking and self- deprecation, and continued isolation at times. Will continue in IOP tx as he transitions back into NA meetings regularly and completes court dates upcoming. IOP tx to prevent decompensation, increase healthy coping, and improve functioning. Time Stopped:: 12:30
--- NOTE | 2023-06-25 09:00 | BH.SGPN.GN ---
Behaviors/Verbalizations/Mental Status: []Eye contact is good. Motor activity is appropriate. Appearance is casual. Speech is Appropriate. Mood is euthymic. Affect is congruent. Thoughts are linear and logical. No evidence of psychosis. Reviewed daily check in sheet and no reports of suicidal ideations or intent. Client Response/Progress/Benefit: []Pt responded well to session, attentive and providing supportive statements. Pt reports feeling encouraged this morning and shared that he went to a NA meeting last night for the first time in a long time. Pt reported he had been avoiding meetings because of his anxiety and fear of being in big groups, but pt sees that not going to meetings contributed to his relapses in the past. Pt reported he also talking more with supports and trying to apply more coping skills. Pt shared he does not have any out of the ordinary stressors today. Pt appeared to benefit from reflecting on his wins and connecting with peers. Pt will continue IOP tx to promote mood stability, increase distress tolerance, and reinforce use of healthy coping skills. Narrative Note: []
--- NOTE | 2023-06-25 10:05 | BH.SGPN.GN ---
Behaviors/Verbalizations/Mental Status: []Eye contact is good. Motor activity is appropriate. Appearance is casual. Speech is Appropriate. Mood is content, anxious. Affect is congruent. Thoughts are linear and logical. No evidence of psychosis. Client Response/Progress/Benefit: []Pt was an active participant in group discussion. Attentive during psychoeducation on the CBT [place] (Thoughts, Behaviors, Emotions). Engaged in group discussion on how thoughts and behaviors can contribute to maintaining adverse feelings, such as depression, anxiety, and irritability. Completed worksheet in which pt identified a thought that is keeping them stuck or is in obstacle to increased mental wellness. The thoughts that pt identified were ?I'm going to do/say something embarrassing , I'm going to be judged by people , and I'm going to feel awkward . Shared this maintains social anxiety cycle. Pt benefited from increased awareness of the basis of CBT therapy as well as specific thoughts that are impacting pt' progress. Will continue in IOP to promote mood stability, prevent decompensation, and to continue to reduce isolation. Narrative Note: []
--- NOTE | 2023-06-25 11:00 | BH.SGPN.GN ---
Behaviors/Verbalizations/Mental Status: []Pt alert and oriented, casually dressed and groomed. Eye contact good. Motor activity appropriate. Speech within normal limits. Affect congruent, mood dysthymic and anxious. Thoughts linear, logical, no signs of hallucinations or delusions. Client Response/Progress/Benefit: []Pt responded well to session, contributing to discussion when prompted, and attentive throughout discussion. Pt identified a negative thought that has kept them stuck. Pt's thought was I'm going to do/say something to embarrass myself.? Pt reported when they think this way, pt gets disheartened and shuts down which results in isolating and avoiding social situations. Pt worked to reframe the thought by finding more rational, realistic ways to look at the thoughts and then processed them within group setting. Pt reframed the thought to ?I usually don't do/say anything to embarrass myself?. Pt appeared to benefit from practicing challenging negative thinking. Pt will continue IOP tx to prevent decompensation, increase healthy exposure, and reduce isolation. ? Narrative Note: []
--- NOTE | 2023-06-29 09:05 | BH.SGPN.GN ---
Behaviors/Verbalizations/Mental Status: [] Eye contact is good. Motor activity is appropriate. Appearance is casual. Speech is Appropriate. Mood is anxious. Affect is congruent. Thoughts are linear and logical. No evidence of psychosis. Reviewed daily check in sheet and no reports of suicidal ideations or intent. Client Response/Progress/Benefit: [] Pt participated at times during the group discussion. Attentive. Daily symptom tracker notes 08/23 for anxiety. Pt states I'm trying to be more active . Shared that he is taking small steps. He has court on and again next week. These have been significant stressors for him. [facility] . He hopes to be able to obtain some closure and deal with the consequences. Appears to be using skills to manage his anxiety. Progress noted per pt report. Benefited from group support, encouragement, and feedback. Will continue in IOP to prevent decompensation, increase healthy coping, and improve functioning. Narrative Note: []
--- NOTE | 2023-06-29 10:15 | BH.SGPN.GN ---
Behaviors/Verbalizations/Mental Status: []Pt alert and oriented, neatly dressed and groomed. Eye contact good. Motor activity appropriate. Speech within normal limits. Affect congruent, mood euthymic. Thoughts linear, logical, no signs of hallucinations or delusions. Client Response/Progress/Benefit: [] Pt engaged in group session AEB listening to others, taking notes throughout, and engaged in the activity. Group attentive during psychoeducation about emotion regulation and dysregulation. Appeared to connect with scenarios reviewed in group on emotion regulation vs dysregulation. Pt benefited from session by gaining an increased understanding on the importance of managing emotions. Pt to continue IOP to promote mood stability, reinforce healthy coping skills, and increase distress tolerance. Narrative Note: []
--- NOTE | 2023-06-29 11:15 | BH.SGPN.GN ---
Behaviors/Verbalizations/Mental Status: []Pt alert and oriented, casually dressed and groomed. Eye contact fair. Motor activity appropriate. Speech within normal limits. Affect congruent, mood euthymic. Thoughts linear, logical, no signs of hallucinations or delusions. Client Response/Progress/Benefit: [] Pt mostly passive participant in session AEB Pt listening attentively to peers and at times providing input. Attentive during psychoeducation on 4 zones of regulation. Pt able to identify feelings and behaviors for each zone. Pt identified coping skills one can use to support self in each zone. Identified one skill from each zone she can practice which included: physical movement, accomplishment journal, share victories, and TIPP strategy (Temperature Change, Intense Exercise, Paced Breathing, Progressive Muscle Relaxation). Benefited from increased education on zones of regulation or stages of alertness for emotions and healthy coping skills to use for each zone. Will continue IOP tx to challenge distortions, continue use of healthy coping skills, and prevent decompensation.
--- NOTE | 2023-06-30 09:00 | BH.SGPN.GN ---
Behaviors/Verbalizations/Mental Status: [] Pt alert and oriented, neat and casually dressed and groomed. Eye contact good. Motor activity appropriate. Speech within normal limits. Affect congruent, mood anxious. Thoughts linear, logical, no signs of hallucinations or delusions. Reviewed pt?s symptom tracker, pt reports no suicidal ideation or intention. Client Response/Progress/Benefit: [] Client responded well to session as evidenced by listening attentively to others, providing feedback, and processing with group. Per symptom tracker client reported a 1/5, with 5 being severe, for depressed mood (which is improved for pt) and a 1/5 for anxiety. Client reported mental health positive as plans to spend time with his father over the next week while visiting from [place]. Shared this will provide a much needed distraction as he has court tomorrow and next week. Expressed that court is his major stressor but he is working hard to focus on what is in his control and practice acceptance. Shared that has been a win as he had previously been struggling with overwhelming ruminating thoughts about his legal issues. Client seemed to benefit from support from others and challenging anxious thoughts. Client to continue IOP to provide support, improve mood stability, and prevent decompensation. Narrative Note: []
--- NOTE | 2023-06-30 10:15 | BH.SGPN.GN ---
Behaviors/Verbalizations/Mental Status: []Pt alert and oriented, neatly dressed and groomed. Eye contact good. Motor activity appropriate. Speech within normal limits. Affect congruent, mood euthymic. Thoughts linear, logical, no signs of hallucinations or delusions. Client Response/Progress/Benefit: [] Pt was an active participant in group discussions and experiential activity. Participated during interactive discussion in which group worked together to define resilience (i.e. continuing to bounce back from hardship; willingness to keep trying) and what makes being resilient hard. Participated during interactive discussion on if resilience is something we are born with or can learn. Pt noted that being a ?ervin? thinker can help a person be resilient. Able to relate the experiential activity back to topic of resilience. Worked well in small groups to identify strategies to build resilience. Benefited from increased awareness of the role of resilience in mental health and ways to build resilience. Will continue in IOP to reinforce healthy coping skills, promote sobriety, and increase self-confidence. Narrative Note: []
--- NOTE | 2023-06-30 11:15 | BH.SGPN.GN ---
Behaviors/Verbalizations/Mental Status: [] Eye contact is good. Motor activity is appropriate. Appearance is casual. Speech is Appropriate. Mood is euthymic. Affect is full. Thoughts are linear and logical. No evidence of psychosis. Client Response/Progress/Benefit: [] Pt was an active participant in group discussions. Participated during interactive discussions and in experiential activity with peers. Pt identified 3 resiliency traits they have and how these traits currently help them. Pt identified Accept that change is a part of living which allows him to be willing to change; Avoid seeing crises as insurmountable problems which helps him be more adaptive when seeking a solution; and Nurture a positive view of yourself which has led to listing my successes, not my failures. Benefited from practicing resiliency traits during experiential activity and identifying personal resiliency factors.Will continue in IOP to prevent decompensation, stabilize mood, increase healthy coping, and improve functioning. Narrative Note: []
--- NOTE | 2023-07-02 09:05 | BH.SGPN.GN ---
Behaviors/Verbalizations/Mental Status: [] Pt alert and oriented, neatly dressed and groomed. Eye contact good. Motor activity appropriate. Speech within normal limits. Affect congruent, mood anxious. Thoughts linear, logical, no signs of hallucinations or delusions. Reviewed pt?s symptom tracker, no risk for suicidal ideation, plan, or intent 07/02/23 Client Response/Progress/Benefit: []Pt responded well to session, attentive and receptive to feedback. Pt reports feeling optimistic and hesitant this morning. Pt shared that his court case yesterday went well, but he has another one next week and pt feels that it's completely out of my control and might not go well. Discussed that there are things in pt's control that he deserves credit for like maintaining sobriety and coming to IOP. Pt shared it is hard for pt to give himself credit for those things because I should be doing that anyway but pt is working on challenging his perspective. Pt appeared to benefit from practicing reframing in session. Pt will continue IOP tx to promote gains, improve daily functioning, and reinforce healthy coping skills. Narrative Note: []
--- NOTE | 2023-07-02 10:10 | BH.SGPN.GN ---
Behaviors/Verbalizations/Mental Status: []Client alert and oriented, casually dressed and groomed. Eye contact good. Motor activity appropriate. Speech within normal limits. Affect congruent, mood anxious and content. Thoughts linear, logical, no signs of hallucinations or delusions. Client Response/Progress/Benefit: []Client receptive to session AEB providing input throughout, listening attentively to others, and taking notes. Attentive throughout psychoeducation on the cognitive triangle and maintenance cycles. Worked on identifying own vicious cycle. Engaged in group discussion reviewing the impact of daily activities and behaviors in either reinforcing unhealthy maintenance cycles and depression or assisting in reducing symptoms (?down? vs ?up? activities). Client identified common ?down? activities they engage in as: isolating, negative self-talk, substance use, and overuse of distraction. Common ?Up? activities client identified included: taking walks, being social, cooking, fishing, and exercising. Appeared to benefit from increased awareness of current behaviors and impact these have on mental health. Pt to remain in IOP tx to maintain mood stability, increase use of grounding skills, and prevent decompensation. Narrative Note: []
--- NOTE | 2023-07-02 11:10 | BH.SGPN.GN ---
Behaviors/Verbalizations/Mental Status: [] Eye contact is good. Motor activity is appropriate. Appearance is casual. Speech is Appropriate. Mood is euthymic. Affect is congruent. Thoughts are linear and logical. No evidence of psychosis. Client Response/Progress/Benefit: [] Pt responded well to session, attentive and engaged in group discussions and activity. Group discussed values and the benefits that knowing one's values can have on one's mental health. Pt explored own values and identified personal top values. Pt stated important value is physical wellbeing. Client set goals to set schedule to walk at least 3 times a week and cook healthy meals at home. Pt appeared to benefit from exploring values and creating a weekly goal. Will continue in IOP to reinforce healthy coping skills, improve confidence, and prevent decompensation.
--- NOTE | 2023-07-02 15:39 | BH.MDN_ITS ---
Multi-Disciplinary Note Note 30-min Individual: Time Started:: 12:00 Date: 07/02/23 Purpose of session/treatment goals addressed:: Processed recent court date and discussed thought challenge strategies for upcoming court date next week. Additionally, reviewed options for continuing to expand social support network. Eye Contact:: Good Motor Activity:: Appropriate Appearance:: Neat and Casual Speech:: Appropriate Mood:: Euthymic and Anxious Affect:: Congruent Thoughts:: Linear, Logical and No evidence of hallucinations/delusions noted Staff Interventions:: thought challenging, CBT techniques, mindfulness skills, discharge planning and strengths perspective Client Response:: Pt reports feeling relieved since his first of two court dates was resolved yesterday. Reports he was granted treatment in lieu of conviction and is proud he was able to work with his erisa attorney to advocate for his mental health needs. Shared that his father had attended the hearing as well which was an additional support. Pt?s father will be visiting for the next week and plans to attend pt?s second court date as well, as pt is more concerned about the outcome of this hearing. Pt explained he is facing more severe charges and is concerned that he will not be granted treatment in lieu of conviction given the severity of his charges. Discussed continuing to struggle with ?what if? thoughts regarding future employment and whether he will be able to secure a charge if he is convicted of a felony. Receptive of working with therapist to focus on what he is doing that is in his control to show he is working towards rehabilitation. Pt identified he has gone through substance abuse treatment and is continuing to with a counselor on an outpatient basis to maintain his sobriety. Additionally identified that he has almost completed this IOP program focused on addressing the underlying mental health reasons for his substance use. Pt reported that although he is nervous, he has done everything he can to become a healthier person and recognizes it is harmful to his mental health to fixate on stressors that are outside his control and future oriented. Pt reports plans to continue working on an accomplishment journal as a means of further challenging his perspective and increasing self-esteem. Pt additionally did well to identify mindfulness skills he is using when recognizing he is becoming stuck on anxious thoughts. Reports he is trying to go for walks, complete logic games or looking at [email or web address] related reddit groups to get him actively thinking about another topic. Did state beliefs he has become more positive and hopeful since beginning IOP tx. Stated that he has taken steps to continue to step outside his comfort zone by attending additional new NA meetings and plans to expand to the [place] areas as a means of further expanding his social support network. Will continue in IOP tx one more week for added support during his court case. Risks/Concerns:: Denies active SI, plan, or intent as of this date 07/02/23. No concerns noted. Progress Toward Goals/Plan:: Continued progress noted. Pt reports improved mood and more hopeful perspective. Report that although he continues to experience anxiety and worries about his future related to ongoing legal issues, he is doing better to manage the anxiety and prevent it from resulting in avoidance, isolation, or panic. Reports beginning to give himself credit for progress without others pointing it out first and is planning to continue with an accomplishment log post IOP d/c to further improve self-talk and challenge negative core beliefs. Is making some progress in improving social supports as pt has been attending more regular NA meetings and is looking into what social groups may be available in the surrounding areas. Will continue in IOP tx one more week for added support during his court case. Time Stopped:: 12:31
--- NOTE | 2023-07-07 12:02 | BH.MDN ---
Multi-Disciplinary Note Note 30-min Individual: Time Started:: 12:00 Date: 07/08/23 Purpose of session/treatment goals addressed:: To address current stressors and discuss strategies to help cope with these stressors. Another goal was to discuss discharge and aftercare. Eye Contact:: Good Motor Activity:: Appropriate Appearance:: Neat and Casual Speech:: Appropriate Mood:: Euthymic and Anxious Affect:: Congruent Thoughts:: Linear, Logical and No evidence of hallucinations/delusions noted Staff Interventions:: thought challenging, CBT techniques, discharge planning, reviewed DSM-5 and other (reviewed maintenance skills for aftercare) Client Response:: Pt responded well to session, open to meeting with therapist. Pt reports he is feeling a little anxious but ultimately ready to discharge from [facility] tx and continue with individual outpatient therapy on a weekly basis. Discussed feeling nervous about his ability to maintain the progress he has made without the regular support of the IOP program. Pt shared plans to increase his regular NA meetings to add additional support post IOP d/c. Additionally plans to continue with weekly outpatient counseling at [facility] and begin the [facility] aftercare program when it reconvenes in early July. Went on to discuss a recent frustration, sharing that his second court date had resolved with the outcome he had anticipated (treatment in lieu of conviction) but he had been frustrated with the court proceedings. Shared that he had waited for an hour outside the court room only to have his estate attorney come out and inform him of the dining car waiter/waitress?s decision. Pt expressed frustration in not being able to state his case or present himself in front of the attraction worker. Did well to process and challenge his frustrations, focusing on the positive outcome and not pt?s disappointment in the proceeding being different that he had expected. Reports that he is relieved he will not have a felony on his record as he will be more likely to obtain employment this way. Reports plans to begin looking for a new job following the holidays. Pt discussed holiday plans and shared excitement he will be able to further explore his newfound interest in cooking. Risks/Concerns:: Pt denies any SI, plan, or intent as of this date 07/08/23 Progress Toward Goals/Plan:: Pt has accomplished his tx goals AEB overall symptom reduction of 43% since admission. Pt's depression has decreased by 60% and anxiety has decreased by 57% since admission. Pt reports improved mood stability and continues to respond well to challenging distortions and practicing acceptance. Pt reports improved ability to manage anxiety triggers and has significantly increased his ability to manage negative thinking. Pt will d/c on this date and continue with outpatient providers. Time Stopped:: 12:30
--- NOTE | 2023-07-07 12:03 | BH.DS ---
Discharge Summary Demographics Date of Admission:: 05/11/23 Discharge Date: 07/09/23 Presenting Problems at Admission:: The patient is a 37-year-old male with a history of depression, anxiety and opioid use disorder (sober from 2 to 3 months) who was referred by a counselor at [facility] for depression and anxiety. Pt was previously in the IOP program from 04/20/23 ? 04/30/23 but was discharged due to being incarcerated for missing court related to prior charges. The patient states that he used to use the drugs to self-medicate for anxiety. Since being sober, in the recent months his depression has worsened and it is hard for him to leave the house or get out of bed due to lack of motivation. He is not afraid to leave the house although he does have social anxiety. His biggest stress is life , specifically not having a job or independent housing. For primary support he has his family however reports he is not close with them. 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 He denies any history of self-harm. He endorses sadness, hopelessness, rumination, social anxiety, worthlessness, lack of motivation, anhedonia, low energy, decreased concentration which has improved in recent weeks and guilt. He also had fleeting suicidal ideation several weeks ago at the time of his intake, but he now denies any suicidal ideation, plan for suicide, homicidal ideation, hallucinations, delusions or mandi ever. He denies OCD, eating disorder, trauma, PTSD or seizure. He did have an accidental overdose on opiates in the past but denied any PTSD symptoms from this. Discharge Diagnoses:: 1. Major depressive disorder, recurrent, severe without psychosis 2. Social anxiety disorder 3. Generalized anxiety disorder 4. Opioid and methamphetamine use disorders (sober for anywhere from 1 to 3 months) Reason for Discharge:: Pt has completed IOP tx goals AEB pt's reduction of DSM-5 symptoms by 43% since admission. Additionally, pt reports improved daily functioning, reduced depression and anxiety, and improved ability to accept current stressors out of his control and focus on what he can do to improve his coping moving forward. Pt will continue with outpatient counseling and see his psychiatrist for medication management. Treatment Progress During Treatment & Response: Pt has responded well to treatment as evidenced by Pt consistently attending IOP sessions and his reduction of DSM-5 scores since admission. Pt was always attentive and receptive to learning during group and individual sessions. Pt actively applied coping skills outside of IOP and reports overall his mood is improved and he is functioning better than he was several months ago. Pt?s overall symptom reduction is 43% since admission with sx of anxiety decreased by 57% and depression has decreased by 60% since admission. Pt reports improved mood stability and continues to respond well to challenging his anxious thoughts and practicing acceptance. Pt reports improved ability to manage anxiety triggers and has significantly increased his ability to manage negative thinking, practice self-compassion, and better cope with his anxiety to continue to maintain sobriety. Issues Still to be Addressed:: Anxiety, reducing avoidance, continued focus on challenging and replacing negative core beliefs, and increasing self-compassion and acceptance. Discharge Recommendations/Instructions:: Pt will follow up with Luís Sheridan for medication management. Pt also has an outpatient therapist, Sigifredo Richardson at [facility] , who pt is scheduled to meet with weekly. Discharge Handout
--- NOTE | 2023-07-08 09:05 | BH.SGPN.GN ---
Behaviors/Verbalizations/Mental Status: [] Pt alert and oriented, casually dressed and groomed. Eye contact good. Motor activity appropriate. Speech within normal limits. Affect congruent, mood content. Thoughts linear, logical, no signs of hallucinations or delusions. Reviewed pt?s symptom tracker, no risk for suicidal ideation, plan, or intent 07/08/23 Client Response/Progress/Benefit: []Pt responded well to session, participating in processing and providing supportive feedback. Pt reports feeling invigorated this morning sharing that he had a positive experience in court and is hopeful as a result. Discussed that although he did not sit in front of the property management specialist to make a statement as expected, he views the positive outcome as a win. Shared doing well to have other things to focus on and remind himself of the evidence that the court proceedings would go as expected. Additional mental health win included getting out of the house and being more social while his father was in town to visit. Current stressor noted as maintaining gains and continuing to focus on getting out of the house after completing the IOP program. Pt appeared to benefit from self-reflection on areas of progress, as well as from group support. Pt will continue IOP tx to maintain mood stability, continue to provide support, and prevent decompensation. Narrative Note: []
--- NOTE | 2023-07-08 10:10 | BH.SGPN.GN ---
Behaviors/Verbalizations/Mental Status: [] Eye contact is good. Motor activity is appropriate. Appearance is casual. Speech is Appropriate. Mood is euthymic. Affect is congruent. Thoughts are linear and logical. No evidence of psychosis. Client Response/Progress/Benefit: []Pt engaged participant AEB listening to others, engaging in activity, and providing feedback at times. Attentive during psychoeducation and provided insight into obstacles in the way of mental wellness. Pt shared with group current mental health reality and desired mental health reality. Stated trying to interact socially as step he is currently making to get closer to desired reality. Identified barriers to desired reality include: low motivation, fear of judgement, not practicing skills, negative thinking, and low confidence. Benefited from taking look at current mental health state and obstacles for progress. Pt to continue IOP to challenge distortions, continue use of skills, and prevent decompensation.
--- NOTE | 2023-07-08 11:10 | BH.SGPN.GN ---
Behaviors/Verbalizations/Mental Status: []Pt alert and oriented, casually dressed and groomed. Eye contact good. Motor activity appropriate. Speech within normal limits. Affect congruent, mood content. Thoughts linear, logical, no signs of hallucinations or delusions. Client Response/Progress/Benefit: []Pt an active participant, encouraging peers and contributed as group brainstormed ideas on how to cope with internal barriers that keep Pts stuck from moving towards goals. Worked with group to identify strategies to help overcome barriers. Identified personal barriers to desired reality. Pt wants to work on overcoming the barrier of lack of confidence by self-reflecting and identifying his daily accomplishments, use opposite action, and positive affirmations. Benefited from group by identifying obstacles and solutions to desired reality.? Pt to continue IOP to prevent negative thinking, reduce the use of unhealthy coping skills, and improve self-compassion. Narrative Note: []
--- NOTE | 2023-07-09 09:05 | BH.SGPN.GN ---
Behaviors/Verbalizations/Mental Status: [] Pt alert and oriented, neatly dressed and groomed. Eye contact good. Motor activity appropriate. Speech within normal limits. Affect congruent, mood euthymic. Thoughts linear, logical, no signs of hallucinations or delusions. Reviewed pt?s symptom tracker, no risk for suicidal ideation, plan, or intent 07/09/23 Client Response/Progress/Benefit: []Pt responded well to session, attentive and providing supportive feedback to peers. Pt reports feeling optimistic this morning as it is pt's last day of IOP tx. Pt shared he has grown a lot while in IOP tx and pt stated he was able to maintain sobriety, increase confidence, and reduce negative thinking. Pt shared he has also found purpose and eagerness again which pt had not felt in a long time. Pt stated he is able to be productive again and he looks forward to getting out of bed now. Pt reported he is anxious about losing the structure of IOP and potentially falling back to old habits. Pt stated he plans to go to more AA and NA meetings to help keep structure and routine. Pt will discharge IOP tx today as pt has accomplished his tx goals and no longer meets criteria for IOP level of care. Narrative Note: []
--- NOTE | 2023-07-09 10:00 | BH.SGPN.GN ---
Behaviors/Verbalizations/Mental Status: [] Client alert and oriented, casually dressed and groomed. Eye contact good. Motor activity appropriate. Speech within normal limits. Affect congruent, mood euthymic. Thoughts linear, logical, no signs of hallucinations or delusions. Client Response/Progress/Benefit: [] Client responded well to session, contributing to discussion and engaged during the activity. Attentive during discussion on the quote. Group identified the benefits of change which included: personal growth, increased confidence, improving mental health, and creating momentum. Worked with the group to identify barriers to change, which included: uncomfortable emotions such as anxiety, lack of motivation, fatigue, pain, and physical barriers. Client participated along with group in activity where they identified and discussed the emotions related to change. Benefited from increased awareness and understanding of emotions, benefits, and barriers related to change. Client expected to discharge from [facility] today with satisfactory progress. Narrative Note: []
--- NOTE | 2023-07-09 11:10 | BH.SGPN.GN ---
Behaviors/Verbalizations/Mental Status: [] Client alert and oriented, casually dressed and groomed. Eye contact good. Motor activity appropriate. Speech within normal limits. Affect congruent, mood euthymic. Thoughts linear, logical, no signs of hallucinations or delusions. Client Response/Progress/Benefit: [] Client responded well to session, attentive. Did well to process activity and work with group to relate the strategies used to overcome barriers in the activity to managing change in own life. Client identified a goal they would like to do to support desired change is consistently going to 1 AA/NA meeting per week. Client identified currently being in the action stage for this particular change. Client said how he misses meeting due to not planning them in advance and is working on being more focused on it. Appeared to benefit from identifying a small goal to work towards. Client expected to discharge from program today with satisfactory progress. Narrative Note: [] Behaviors/Verbalizations/Mental Status: [] Client alert and oriented, casually dressed and groomed. Eye contact good. Motor activity appropriate. Speech within normal limits. Affect congruent, mood euthymic. Thoughts linear, logical, no signs of hallucinations or delusions. Client Response/Progress/Benefit: [] Client responded well to session, attentive. Did well to process activity and work with group to relate the strategies used to overcome barriers in the activity to managing change in own life. Client identified a goal they would like to do to support desired change is consistently going to 1 AA/NA meeting per week. Client identified currently being in the action stage for this particular change. Client said how he misses meeting due to not planning them in advance and is working on being more focused on it. Appeared to benefit from identifying a small goal to work towards. Client expected to discharge from program today with satisfactory progress. Narrative Note: [] Behaviors/Verbalizations/Mental Status: [] Client alert and oriented, casually dressed and groomed. Eye contact good. Motor activity appropriate. Speech within normal limits. Affect congruent, mood euthymic. Thoughts linear, logical, no signs of hallucinations or delusions. Client Response/Progress/Benefit: [] Client responded well to session, attentive. Did well to process activity and work with group to relate the strategies used to overcome barriers in the activity to managing change in own life. Client identified a goal they would like to do to support desired change is consistently going to 1 AA/NA meeting per week. Client identified currently being in the action stage for this particular change. Client said how he misses meeting due to not planning them in advance and is working on being more focused on it. Appeared to benefit from identifying a small goal to work towards. Client expected to discharge from program today with satisfactory progress. Narrative Note: [] Behaviors/Verbalizations/Mental Status: [] Client alert and oriented, casually dressed and groomed. Eye contact good. Motor activity appropriate. Speech within normal limits. Affect congruent, mood euthymic. Thoughts linear, logical, no signs of hallucinations or delusions. Client Response/Progress/Benefit: [] Client responded well to session, attentive. Did well to process activity and work with group to relate the strategies used to overcome barriers in the activity to managing change in own life. Client identified a goal they would like to do to support desired change is consistently going to 1 AA/NA meeting per week. Client identified currently being in the action stage for this particular change. Client said how he misses meeting due to not planning them in advance and is working on being more focused on it. Appeared to benefit from identifying a small goal to work towards. Client expected to discharge from program today with satisfactory progress. Narrative Note: []
== END 2023-07-13 07:05 | disposition home or self-care (01) ==
LOC: BHIOP 07:08
PROVIDERS: PCP Internal Medicine; Referring Provider Psychiatry & Neurology Psychiatry; Visit Provider Psychiatry & Neurology Psychiatry
DX: F33.2 Major depressive disorder, recurrent severe without psychotic features (principal); F41.1 Generalized anxiety disorder; F41.8 Other specified anxiety disorders; F11.90 Opioid use, unspecified, uncomplicated
CPT/HCPCS: H2012; H2020; S9480; 90832

== ENCOUNTER 2023-07-29 09:00 | Outpatient (RCR) | payer MEDICAID, SELFPAY ==
--- NOTE | 2023-07-29 15:17 | BH.COMM ---
Communication Note Communication with Client Communication Note: Patient completed IOP and presents today to start relapse prevention group which meets once weekly (1.5 hours) for 8 weeks. Case discussed with Dr. Gomes with plan to admit with dx of F33.2
--- NOTE | 2023-07-29 16:25 | BH.MTP ---
Master Treatment Plan Patient Information Program Physician:: Dr. 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 Objectives Objective #1: Stated Objective: Client will continue to consistently apply healthy coping skills to maintain progress made in IOP tx. Interventions: Through group therapy, client will review warning signs and triggers as well as healthy coping skills learned in IOP tx to successfully maintain gains while transitioning into outpatient therapy. Discharge Criteria: Client will have accomplished this goal when client's score on the DSM-5 cross-cutting measure has maintained or reduced over a 8 week period. Target Date: 09/23/23 Review Date: 08/26/23 Status: open Objective #2: Stated Objective: Client will learn and utilize 2-3 maintenance strategies to prevent decompensation from original IOP DSM-5 scores. Interventions: Through group therapy, client will be provided with education on healthy maintenance behaviors, relapse prevention techniques, and healthy coping strategies. Discharge Criteria: Client will have accomplished this goal when can report using at least 2 maintenance skills to prevent decompensation compared to original IOP DSM-5 scores Target Date: 09/23/23 Review Date: 08/26/23 Status: open
--- NOTE | 2023-07-30 14:00 | BH.SGPN.GN ---
Behaviors/Verbalizations/Mental Status: [] Pt alert and oriented, casually dressed. Eye contact good. Motor activity appropriate. Speech within normal limits. Affect congruent, mood agitated and anxious. Thoughts linear, logical, no signs of hallucinations or delusions. Client Response/Progress/Benefit: [] Pt receptive of session, engaged and providing supportive feedback throughout group. Reports that since leaving IOP he has ?fallen off? with using some of his healthy habits, but pt is working on getting back into these. Pt has been consistent with medication and therapy. Pt has been using healthy distractions and learning new skills which has helped pt cope with his court-related stressor. Pt engaged in the discussion about self-love and participated in the experiential activity that highlighted the acceptance component of self-love. Reports wanting to work on self-love by using the journal prompt of ?reflect on a time when you felt truly proud of yourself.? Seemed to benefit from reviewing treatment progress and strategies for managing current stressors, as well as learning about how to increase self-love. Pt to continue IOP aftercare tx to promote mood stability, reinforce gains made in IOP, and review coping skills from IOP. Narrative Note: []
--- NOTE | 2023-08-05 14:00 | BH.SGPN.GN ---
Behaviors/Verbalizations/Mental Status: []Pt alert and oriented, casually dressed and groomed. Eye contact good. Motor activity appropriate. Speech within normal limits. Affect congruent, mood anxious and content. Thoughts linear, logical, no signs of hallucinations or delusions. Client Response/Progress/Benefit: []Pt responded well to session AEB sharing and listening attentively to others. Pt has been consistent with his outpatient mental health appointments and medication compliance. Pt reports using positive self-talk, opposite action, and small goal creation to help with managing his mental health symptoms. Pt participated in group discussion defining affirmations and why they are important. Pt provided insight throughout clinician?s presentation of tips for writing personal affirmations and wrote his own affirmations, including ?I am have value and worth as an individual?. Pt appeared to benefit from increased knowledge of affirmation writing skills and creating his own affirmation statements to remind himself of outside tx environment. Will continue aftercare tx to promote consistent mental health maintenance and prevent decompensation. Narrative Note: []Behaviors/Verbalizations/Mental Status: []Pt alert and oriented, casually dressed and groomed. Eye contact good. Motor activity appropriate. Speech within normal limits. Affect congruent, mood anxious and content. Thoughts linear, logical, no signs of hallucinations or delusions. Client Response/Progress/Benefit: []Pt responded well to session AEB sharing and listening attentively to others. Pt has been consistent with his outpatient mental health appointments and medication compliance. Pt reports using positive self-talk, opposite action, and small goal creation to help with managing his mental health symptoms. Pt participated in group discussion defining affirmations and why they are important. Pt provided insight throughout clinician?s presentation of tips for writing personal affirmations and wrote his own affirmations, including ?I am have value and worth as an individual?. Pt appeared to benefit from increased knowledge of affirmation writing skills and creating his own affirmation statements to remind himself of outside tx environment. Will continue aftercare tx to promote consistent mental health maintenance and prevent decompensation. Narrative Note: []
--- NOTE | 2023-08-12 14:00 | BH.SGPN.GN ---
Behaviors/Verbalizations/Mental Status: []Pt alert and oriented, casually dressed and groomed. Eye contact good. Motor activity appropriate. Speech within normal limits. Affect congruent, mood euthymic. Thoughts linear, logical, no signs of hallucinations or delusions. Client Response/Progress/Benefit: []Client reported he has seen his psychiatrist and counselor this week. Stated he is taking his medications consistently. Client reported he is feeling a little less stressed after resolving one of his court cases recently. Client stated he completed homework from last week of saying affirmations daily. Client stated he has been walking and challenging negative thoughts as skills to manage stressors throughout week. Client attentive to psychoeducation about gratitude and provided contributions throughout. Client created his gratitude plan for the week. Pt to continue IOP to maintain gains, challenge distortions, and prevent decompensation.
== END 2023-08-18 23:59 ==
LOC: BHOG 09:00
PROVIDERS: PCP Internal Medicine; Referring Provider Psychiatry & Neurology Psychiatry; Visit Provider Psychiatry & Neurology Psychiatry
DX: F33.2 Major depressive disorder, recurrent severe without psychotic features (principal); F41.8 Other specified anxiety disorders; F41.1 Generalized anxiety disorder; F13.90 Sedative, hypnotic, or anxiolytic use, unspecified, uncomplicated; F11.90 Opioid use, unspecified, uncomplicated
CPT/HCPCS: 90853

== ENCOUNTER → 2023-07-30 | Outpatient (CLI) | payer MEDICAID, SELFPAY ==
[2023-07-30 15:51] LABS: Cholesterol 330 mg/dL (200); Free T3 2.6 pg/mL (2.18-3.98); High Density Lipoprotein 37 mg/dL; T4 Free Direct 0.65 ng/dL (0.76-1.46); Thyroid Stim Hormone (TSH) 7.32 uIU/mL (0.358-3.74); Triglycerides 1029 mg/dL
== END | disposition home or self-care (01) ==
LOC: LAB 13:50
PROVIDERS: PCP Internal Medicine; Referring Provider Internal Medicine; Visit Provider Internal Medicine
DX: Z13.220 Encounter for screening for lipoid disorders (principal); E03.9 Hypothyroidism, unspecified
CPT/HCPCS: 36415; 80061; 84439; 84443; 84481

== ENCOUNTER 2023-08-19 08:04 | Outpatient (RCR) | payer MEDICAID, SELFPAY ==
--- NOTE | 2023-08-19 14:00 | BH.SGPN.GN ---
Behaviors/Verbalizations/Mental Status: []Pt alert and oriented, neatly dressed and groomed. Eye contact good. Motor activity appropriate. Speech within normal limits. Affect congruent, mood euthymic. Thoughts linear, logical, no signs of hallucinations or delusions. Client Response/Progress/Benefit: [] Pt responded well to session, Pt reports following through with taking medications and seeing a therapist. Pt reports using numerous coping skills including affirmations, keeping a routine and scheduling things each day, walking, and going to NA meetings. Pt reports he has been working on not comparing himself to others who have jobs and ?seem to have life figured out.? Pt engaged well during the discussion of the components of self-compassion. Pt connected with the benefits of self-compassion and participated in the activity of reframing a recent setback using self-compassion. Pt used self-compassion to combat negative self-talk about ?not having everything figured out in life.? Pt appeared to benefit from practicing self-compassion and connecting with peers. Will continue aftercare to promote mood stability and reinforce healthy coping skills.? Narrative Note: []
--- NOTE | 2023-08-19 16:55 | BH.MTP_ITS ---
Treatment Plan Review Demographics Date of Admission:: 07/29/23 Date of Treatment Plan Review:: 08/19/23 Admitting Diagnoses:: Major depressive disorder, recurrent, severe without psychosis F33.2; Social anxiety disorder; Generalized anxiety disorder ; Opioid and methamphetamine use disorders (sober for anywhere from 3 to 5 months) Current Diagnoses:: Major depressive disorder, recurrent, severe without psychosis F33.2; Social anxiety disorder; Generalized anxiety disorder ; Opioid and methamphetamine use disorders (sober for anywhere from 3 to 5 months) Patient Status Patient's Response to Treatment:: Pt continues to respond well to treatment AEB pt's consistent attendance, ongoing attentiveness and engagement in group discussions, and continued reporting use of skills outside treatment env ironment. Pt's symptoms are down 37% lower than they were at IOP admission. Status of Current Problems and Symptoms: Pt continues to report symptoms of depression per the DSM-5, but pt identified these symptoms as mild. Pt reports there are days when his mood is low and it is a struggle to motivate himself. Pt has ongoing stressors with legal issues and court, but this is resolving as well. Pt reports he wants to figure out what is next for him (job [place], etc) and this does cause some stress and depression. Progress Problem #1: Problem Name:: Pt will maintain or decrease symptoms from IOP admission data. Status of Goals:: Obj 1 - complete with ongoing work encouraged- Pt has been able to maintain gains made in IOP as pt?s DSM-5 scores are 37% lower than they were at IOP admission. 20% decrease in depressive symptoms and 71% decrease in anxiety when compared to IOP admission scores. Obj 2 - complete with ongoing work encouraged. Pt has been consistently reporting use of opposite action, keeping a routine, engaging in self-care practices, and using thought challenging. Team Recommendations:: Recommended client continue IOP aftercare group to show maintenance of progress. Will continue to encourage client to attend regular outpatient counseling and psychiatry appointments along with NA as well.
--- NOTE | 2023-08-26 14:00 | BH.SGPN.GN ---
Behaviors/Verbalizations/Mental Status: []Client alert and oriented, casually dressed and groomed. Eye contact good. Motor activity appropriate. Speech within normal limits. Affect congruent, mood euthymic and anxious. Thoughts linear, logical, no signs of hallucinations or delusions. Client Response/Progress/Benefit: []Receptive of session, engaged throughout. Pt reports he has remained consistent in outpatient counseling. Has a psychiatry appointment scheduled, and is maintaining medication compliance. Noted use of positive self-talk, opposite action, and thought challenging as coping skills aiding in ongoing mental health maintenance. Engaged and attentive during discussion of vulnerability and benefits of practicing vulnerability.. Group discussed ways we avoid feeling vulnerable and how this negatively affects mental health and relationships. Pt identified use of avoidance and isolation as a means of avoiding potential vulnerability. Appeared to benefit from group support and discussion reflecting on the positive impact vulnerability can have on mental health. Identified plans to challenge himself to participate more in social aspects of AA/NA as a way in which he could practice being vulnerable in the next week. Pt will continue with aftercare tx to maintain gains and prevent decompensation. Narrative Note: []
--- NOTE | 2023-09-02 14:00 | BH.SGPN.GN ---
Behaviors/Verbalizations/Mental Status: []Client alert and oriented, casually dressed and groomed. Eye contact good. Motor activity appropriate. Speech within normal limits. Affect congruent, mood euthymic and positive. Thoughts linear, logical, no signs of hallucinations or delusions. Client Response/Progress/Benefit: []Client responded well to session AEB engagement in discussions, listening to others, and completing activity. Client stated he has seen his therapist and sees his psychiatrist next week. Client reported taking medications consistently. Client identified positive as getting one of his court cases resolved. Client stated he received treatment in lieu of conviction for his drug charges. Client stated he felt relief from this outcome, but was told he will have court again to get sentencing for his [place] charge. Client stated he is worried about the outcome because he was told he cannot receive treatment in lieu of conviction for that charge. Client stated he has been using skills like walking and breathing to help manage various stressors over the last week. Client responded well to psychoeducation about self-reflection. In personal reflection client identified progress he has made since d/c from IOP is staying sober and taking time to analyze his thoughts before acting. Seemed to benefit from support from peers. Client is to continue aftercare to reinforce healthy coping and maintain gains. Narrative Note: []
--- NOTE | 2023-09-09 14:00 | BH.SGPN.GN ---
Behaviors/Verbalizations/Mental Status: []Pt alert and oriented, neatly dressed and groomed. Eye contact good. Motor activity appropriate. Speech within normal limits. Affect congruent, mood euthymic. Thoughts linear, logical, no signs of hallucinations or delusions. Client Response/Progress/Benefit: []Pt receptive of session, engaged throughout. Pt reports consistently taking medications and following up with his providers. Pt reports use of opposite action, challenging negative thinking, and being more social to cope with stressors. Receptive of discussion on personal accountability and its importance in maintaining mental health stability. Engaged in brainstorming strategies for improving ability to hold themselves accountable and participated in the activity. Pt admitted that the activity elicited frustration and stress, but pt did not give up. Reported wanting to work on maintenance as pt has been setting reminders and tracking things on his phone when he accomplishes a goal. Pt feels he is visually/data driven, but he also finds benefit in telling someone about the goal. Pt seemed to benefit from support from peers and increasing understanding of personal accountability benefits and strategies. Will continue IOP aftercare group to maintain gains and prevent decompensation. Narrative Note: []
== END 2023-09-16 23:59 ==
LOC: BHOG 08:04
PROVIDERS: PCP Internal Medicine; Referring Provider Psychiatry & Neurology Psychiatry; Visit Provider Psychiatry & Neurology Psychiatry
DX: F33.2 Major depressive disorder, recurrent severe without psychotic features (principal); F41.8 Other specified anxiety disorders; F41.1 Generalized anxiety disorder; F11.90 Opioid use, unspecified, uncomplicated; F15.90 Other stimulant use, unspecified, uncomplicated
CPT/HCPCS: 90853

== ENCOUNTER 2023-09-17 07:00 | Outpatient (RCR) | payer MEDICAID, SELFPAY ==
--- NOTE | 2023-09-30 14:00 | BH.SGPN.GN ---
Behaviors/Verbalizations/Mental Status: []Pt alert and oriented, casually dressed and groomed. Eye contact good. Motor activity appropriate. Speech within normal limits. Affect congruent, mood euthymic. Thoughts linear, logical, no signs of hallucinations or delusions. Client Response/Progress/Benefit: [] Pt receptive of session, engaged throughout. Pt shared he met with his therapist this week and has been consistent with meds. Reports the coping skills used throughout the week included: taking breaks, going outside, and thought challenging. Receptive of discussion on the three components of the Wellness [place] (social, mental health, and physical) and the importance of balancing each of these areas. Pt contributed to the discussion on the variables impacting each area of wellness including: biology, environment, attitude, behavior, technology, and social support network. Completed an assessment reviewing personal wellness in each pillar of the wellness triangle. Identified wanting to work on physical wellness by creating a consistent physical activity routine. Pt seemed to benefit from support from peers and increasing understanding of the relationship between different areas of wellness. Will remain in the aftercare program to maintain gain and prevent decompensation. Narrative Note: []
--- NOTE | 2023-10-07 14:00 | BH.SGPN.GN ---
Behaviors/Verbalizations/Mental Status: []Pt alert and oriented, neatly dressed and groomed. Eye contact good. Motor activity appropriate. Speech within normal limits. Affect congruent, mood euthymic. Thoughts linear, logical, no signs of hallucinations or delusions. Client Response/Progress/Benefit: [] Pt receptive of session, engaged throughout. Pt had an appointment with a therapist this week. Pt has been consistent with taking meds and using coping skills. These skills included: distractions, redirecting negative thoughts, and opposite action. Receptive of discussion on sitting with the uncomfortable and emotional urges. Pt contributed to the discussion of distress tolerance and how building distress tolerance can help improve mood stability and resilience. Pt looked at a recent situation that was distressing and wrote out low distress tolerance and high distress tolerance responses. Pt wants to work on explaining his feelings instead of withdrawing from support. Pt seemed to benefit from support from peers and increasing understanding of distress tolerance. Will discharge from [facility] aftercare as pt has successfully completed the 8-week program and accomplished tx goals. Narrative Note: []
--- NOTE | 2023-10-07 16:00 | BH.DS_ITS ---
Discharge Summary Demographics Date of Admission:: 07/29/23 Discharge Date: 10/07/23 Presenting Problems at Admission:: Pt discharged from IOP tx and transitioned to IOP aftercare to maintain gains pt made in IOP and to reinforce healthy coping skills. At admission to IOP aftercare, pt continued to report symptoms of depression and anxiety, but of reduced intensity. Pt had psychosocial stressors he was coping with including still searching for a job, decreasing avoidance be haviors, and maintaining sobriety. Discharge Diagnoses:: 1. Major depressive disorder, recurrent, severe without psychosis 2. Social anxiety disorder 3. Generalized anxiety disorder 4. 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 Pt's DSM-5 scores are 50% less than at to IOP admission. Pt will transition to traditional outpatient counseling. Treatment Progress During Treatment & Response: Pt responded well and made progress in IOP aftercare as evidenced by pt's participation in group discussions and self- report of consistently applying coping skills. Pt's overall DSM-5 scores decreased by 50% from IOP admission. Pt?s depression decreased by 60% since original IOP admission and pt's scores for anxiety decreased by 71%, compared to original IOP scores. Additionally, at discharge pt reported feeling more acceptance towards life stressors and a more balanced outlook on life. Pt also reported consistent use of healthy coping skills. Issues Still to be Addressed:: Anxiety, reducing avoidance, continued focus on challenging and replacing negative core beliefs, and increasing self-compassion and acceptance. Discharge Recommendations/Instructions:: Pt will follow up with Lu[facility] Sheridan for medication management. Pt also has an outpatient therapist, Sigifredo Richardson at [facility] , who pt is scheduled to meet with weekly. Discharge Handout
== END 2023-10-11 07:10 | disposition home or self-care (01) ==
LOC: BHOG 07:00
PROVIDERS: PCP Internal Medicine; Referring Provider Psychiatry & Neurology Psychiatry; Visit Provider Psychiatry & Neurology Psychiatry
DX: F33.2 Major depressive disorder, recurrent severe without psychotic features (principal); F41.1 Generalized anxiety disorder; F41.8 Other specified anxiety disorders; F11.90 Opioid use, unspecified, uncomplicated; F13.90 Sedative, hypnotic, or anxiolytic use, unspecified, uncomplicated
CPT/HCPCS: 90853

== ENCOUNTER → 2023-10-13 | Outpatient (CLI) | payer MEDICAID, SELFPAY ==
[2023-10-13 14:50] LABS: Insulin 32.1 mU/L (2.6-37.6)
[2023-10-13 15:05] LABS: ALB/GLOB Ratio 1.4 RATIO (0.9-2.4); AST(SGOT) 36 U/L (15-37); Alanine Aminotransfer ALT/SGPT 60 U/L (16-61); Albumin, Serum 4.3 g/dL (3.2-5.0); Alkaline Phosphatase 79 U/L (45-117); Anion Gap 5 (5-15); BUN 13 mg/dL (7-18); Calcium,Total 8.9 mg/dL (8.5-10.1); Chloride 108 mmol/L (98-107); Cholesterol 204 mg/dL (200); EST Glomerular Filtration Rate 89 mL/min (>60); Est Glom Filt Rate - Afr Amer 108 mL/min (>60); Free T3 2.6 pg/mL (2.18-3.98); Globulin 3.1 g/dL (2.2-4.2); Glucose 94 mg/dL (74-106); High Density Lipoprotein 38 mg/dL; Potassium 4.3 mmol/L (3.5-5.1); Protein, Total 7.4 g/dL (6.4-8.2); Sodium Level 140 mmol/L (136-145); T4 Free Direct 0.74 ng/dL (0.76-1.46); Thyroid Stim Hormone (TSH) 6.19 uIU/mL (0.358-3.74); Triglycerides 521 mg/dL
== END | disposition home or self-care (01) ==
LOC: LAB 12:12
PROVIDERS: PCP Internal Medicine; Referring Provider Internal Medicine; Visit Provider Internal Medicine
DX: E78.5 Hyperlipidemia, unspecified (principal); E03.9 Hypothyroidism, unspecified
CPT/HCPCS: 36415; 80053; 80061; 83525; 84439; 84443; 84481

== ENCOUNTER → 2024-08-17 | Outpatient (CLI) | payer MEDICAID, SELFPAY ==
[2024-08-17 08:48] LABS: Absolute Neutrophil Count 3.7 X10^3/uL (2.0-7.7); Basophil# 0.09 X10^3/uL; Basophil% 1.4 % (0-1); Eosinophil# 0.19 X10^3/uL; Hematocrit 41.1 % (40-54); Hemoglobin 14.1 g/dL (13.0-16.5); Lymphocyte % 27.2 % (19-41); Mean Corp Hgb Conc 34.3 g/dL (32-36); Mean Corpuscular Volume 84.6 fL (80-94); Mean Platelet Vol. 9.9 fl (6.2-12.0); Monocyte# 0.59 X10^3/uL; Monocyte% 9.4 % (0-10); NRBC Flagged by Analyzer 0 % (0-5); Neutrophil # 3.66 X10^3/uL (2.7-7.7); Neutrophil % 58.7 % (47-70); Platelet Count 287 K/mm3 (150-450); RBC Distribution Width CV 11.8 % (11.6-14.6); RBC Distribution Width SD 35.8 fl (35.1-43.9); Red Blood Count 4.86 M/mm3 (4.6-6.2); White Blood Count 6.3 K/mm3 (4.4-11.0)
[2024-08-17 09:18] LABS: Vitamin D,25 Hydroxy 10.9 ng/mL
[2024-08-17 09:39] LABS: ALB/GLOB Ratio 1.4 RATIO (0.9-2.4); AST(SGOT) 27 U/L (15-37); Alanine Aminotransfer ALT/SGPT 39 U/L (16-61); Albumin, Serum 4.1 g/dL (3.2-5.0); Alkaline Phosphatase 82 U/L (45-117); Anion Gap 4 (5-15); BUN 17 mg/dL (7-18); BUN/Creat Ratio 16.3 RATIO (10-20); Calcium,Total 9.1 mg/dL (8.5-10.1); Chloride 105 mmol/L (98-107); Cholesterol 164 mg/dL (200); Creatinine, Serum 1.04 mg/dL (0.70-1.30); EST Glomerular Filtration Rate 85 mL/min (>60); Est Glom Filt Rate - Afr Amer 102 mL/min (>60); Free T3 2.8 pg/mL (2.18-3.98); Glucose 110 mg/dL (74-106); High Density Lipoprotein 38 mg/dL; Potassium 4.2 mmol/L (3.5-5.1); Protein, Total 7.1 g/dL (6.4-8.2); Sodium Level 138 mmol/L (136-145); T4 Free Direct 0.81 ng/dL (0.76-1.46); Triglycerides 437 mg/dL
[2024-08-17 12:22] LABS: Hemoglobin A1c 5.2 % (3.8-5.6)
== END | disposition home or self-care (01) ==
PROVIDERS: PCP Internal Medicine; Referring Provider Internal Medicine; Visit Provider Internal Medicine
DX: Z00.00 Encounter for general adult medical examination without abnormal findings (principal); R56.9 Unspecified convulsions; G45.4 Transient global amnesia; Z13.220 Encounter for screening for lipoid disorders; E78.5 Hyperlipidemia, unspecified; E03.9 Hypothyroidism, unspecified; R73.9 Hyperglycemia, unspecified
CPT/HCPCS: 36415; 80053; 80061; 82306; 83036; 84439; 84443; 84481; 85025; 95819

== ENCOUNTER → 2024-09-15 | Outpatient (CLI) | payer MEDICAID, SELFPAY ==
--- NOTE | 2024-09-15 07:25 | MRI_ITS ---
PROCEDURE: BRAIN W/WO CONTRAST REASON FOR EXAM: Transient global amnesia. Unspecified convulsions. Memory loss incident. Weight loss. No prior history of seizures. TECHNIQUE: Multiplanar, multisequence MRI of the brain without and with intravenous gadolinium-based contrast. CONTRAST: 22 mL Clariscan intravenous. COMPARISON: None provided. FINDINGS: Diffusion-weighted images demonstrate no area of restricted diffusion. No intracranial mass or mass effect is seen. No extra-axial fluid collection is noted. Ventricles appear symmetric and within the normal range. No orbital pathology is noted. The internal auditory canals appear symmetric and within the normal range. Moderate nasal septal deviation to the right is seen. The paranasal sinuses appear clear, as do the mastoid air cells. Following intravenous contrast administration, no area of abnormal enhancement is seen. MRI/Brain W/WO Contrast IMPRESSION: No significant intracranial abnormality is noted. No evidence of acute disease . Reading Location: [id number]
[2024-09-15 10:37] LABS: Free T3 3.1 pg/mL (2.18-3.98)
== END | disposition home or self-care (01) ==
PROVIDERS: PCP Internal Medicine; Referring Provider Internal Medicine; Visit Provider Internal Medicine
DX: R56.9 Unspecified convulsions (principal); G45.4 Transient global amnesia; E03.9 Hypothyroidism, unspecified
CPT/HCPCS: 36415; 70553; 84439; 84443; 84481; A9575